=== PATIENT | female | born 1950 | race Caucasian/White ===

== ENCOUNTER 2019-12-22 11:16 | Outpatient (REF) | payer MEDICARE, SELFPAY | END 2019-12-22 11:17 | disposition home or self-care (01) | LOC: HO.LNP 11:16 | PROVIDERS: Visit Provider Hospitalist | DX: R30.0 Dysuria (principal) | CPT/HCPCS: 87086; 87088; 87186 ==

== ENCOUNTER 2020-07-17 14:20 | Outpatient (REF) | payer MEDICARE, SELFPAY ==
--- NOTE | ~2020-07-17 | MM_ITS ---
EXAMINATION: BONE DENSITOMETRY CLINICAL INDICATION: Menopausal. COMPARISON: Previous BD dated 01/25/2018 and baseline BD dated 03/15/2009. TECHNIQUE: Using a [employer] DXA system (software version: 14.10) manufactured by [employer], dual-energy x-ray absorptiometry was performed of the lumbar spine and left hip. The images are of good technical quality. Summary results are attached. FINDINGS: AP SPINE L1-L4: Current: BMD 1.187 g/cm2, Z-score 1.0, T-score 0.1, normal, 2.9% decrease from previous, 2.2% increase from baseline (<5% change is not significant). Prior: BMD 1.223 g/cm2. Baseline: BMD 1.162 g/cm2. LEFT FEMUR, NECK: Current: BMD 0.881 g/cm2, Z-score 0.1, T-score -1.1, osteopenia. Prior: BMD 0.828 g/cm2. Baseline: BMD 0.906 g/cm2. LEFT FEMUR, TOTAL: Current: BMD 0.965 g/cm2, Z-score 0.6, T-score -0.3, normal, 0.9% increase from previous, 1.0% decrease from baseline (<5% change is not significant). Prior: BMD 0.956 g/cm2. Baseline: BMD 0.975 g/cm2. IDENTIFIED RISK FACTORS: Menopause. Anticonvulsant. Low calcium intake. HISTORY OF FRACTURE: Ankle. MEDICATIONS: Vitamin D. MM/XR DEXA axial skeleton IMPRESSION: 1. DIAGNOSIS: Osteopenia based on the lowest T-score value of -1.1 in the femoral neck applying World Health Organization criteria. 2. 10-YEAR FRACTURE RISK PREDICTION, FRAX: Major osteoporotic fracture (clinical spine, forearm, hip or shoulder) 14.0%. Hip fracture 1.4%. 3. Treatment Recommendations: NOF guidelines recommend consideration for treatment in postmenopausal women and men age 50 and older presenting with the following: -A hip or vertebral (clinical or morphometric) fracture. -T-score less than or equal to -2.5 at the femoral neck or spine after appropriate evaluation to exclude secondary causes. -Low bone mass at the hip or spine and a 10-year fracture probability by FRAX of greater than or equal to 3% for hip fracture or greater than or equal to 20% for major osteoporotic fracture based on the [place] adapted WHO algorithm. 4. Other Recommendations: All treatment decisions require clinical judgment and consideration of individual patient factors, including patient preferences, comorbidities, previous drug use, risk factors not captured in the FRAX model (e.g. frailty, falls, vitamin D deficiency, increased bone turnover, interval significant decline in bone density) and possible under or overestimation of fracture risk by FRAX. Additional medical evaluation for secondary cause of low bone mineral density may be appropriate. FUTURE SCAN RECOMMENDATION: People with diagnosed cases of osteoporosis or at high risk for fracture should have regular bone mineral density tests. For patients eligible for Medicare, routine testing is allowed once every 2 years. The testing frequency can be increased to one year for patients who have rapidly progressing disease, those who are receiving or discontinuing medical therapy to restore bone mass, or have additional risk factors.
== END 2020-07-17 14:21 | disposition home or self-care (01) ==
LOC: HO.MAMMO 14:20
PROVIDERS: PCP Internal Medicine; Visit Provider Obstetrics & Gynecology
DX: Z13.820 Encounter for screening for osteoporosis (principal); E28.319 Asymptomatic premature menopause; M85.80 Other specified disorders of bone density and structure, unspecified site; Z78.0 Asymptomatic menopausal state; Z79.899 Other long term (current) drug therapy
CPT/HCPCS: 77080

== ENCOUNTER 2022-02-11 12:12 | Day surgery (SDC) | payer MEDICARE, SELFPAY ==
--- NOTE | 2022-02-10 14:32 | P.CONAN_ITS ---
Documented by User: Ellen Cuellar NP 02/10/22 15:03 HPI - Anesthesia Eval Consult details Narrative: 71yo F for Colonoscopy Afib, s/p ablation, no OAC PMFSH Active Problems Active Problems: All Active Problems (Updated 12/22/19 @ 09:56 by Cooper Cardozo DO) Dysuria (Acute) Past Medical History Medical History ACS (acute coronary syndrome) Arrhythmia CAD (coronary artery disease) Cervical disc disorder Diabetes History of angina History of cancer of uterine body HTN (hypertension) Mixed hyperlipidemia Myocardial infarction ZENON (obstructive sleep apnea) PAF (paroxysmal atrial fibrillation) PVD (peripheral vascular disease) Surgical History Surgical History H/O heart artery stent H/O: hysterectomy History of cardiac radiofrequency ablation (RFA) History of cataract surgery History of dilatation and curettage Hx of colonoscopy Social History Social History Patient Tobacco Use Status: Never used Tobacco Are you DNR?: No Advance Directives: No Advance Directives Information Provided: Yes Nutrition Risks: No Nutritional Risk Meds Allergies Allergy/AdvReac Type Severity Reaction Status Date / Time erythromycin base Allergy Unknown HIVES Verified 02/11/22 13:31 [ERYTHROMYCIN BASE] Penicillins [PENICILLINS] Allergy Unknown HIVES Verified 02/11/22 13:31 Sulfa (Sulfonamide Allergy Unknown unknowmn Verified 02/11/22 13:31 Antibiotics) sulfamethoxazole Allergy Unknown HIVES Verified 02/11/22 13:31 [From BACTRIM] tetracycline [TETRACYCLINE] Allergy Unknown HIVES Verified 02/11/22 13:31 trimethoprim [From BACTRIM] Allergy Unknown HIVES Verified 02/11/22 13:31 MOST ANTIBIOTIS Allergy Unknown HIVES Uncoded 12/22/19 09:46 Home Medications Medication Instructions Recorded Confirmed Last Taken Type atorvastatin 80 mg tablet 80 mg PO DAILY 12/22/19 02/11/22 02/09/22 History diltiazem HCl 120 mg 120 mg PO DAILY 12/22/19 02/11/22 02/10/22 History capsule,extended release 24 hr metoprolol tartrate 50 mg tablet 50 mg PO BID 12/22/19 02/11/2202/11/22 History nitroglycerin 0.4 mg sublingual 1 mg sublingual PRN Chest Pain 12/22/19 12/22/19 Unknown History tablet valsartan 160 mg tablet 160 mg PO DAILY 12/22/19 02/11/22 02/10/22 History aspirin 81 mg tablet,delayed 81 mg PO DAILY 02/11/22 02/11/22 02/04/22 History release metformin 500 mg tablet,extended 1 tab PO DAILY 02/11/22 02/11/22 02/10/22 History release 24 hr nitrofurantoin macrocrystal 100 mg 1 cap PO DAILY 02/11/22 02/11/22 02/10/22 History capsule solifenacin 10 mg tablet 1 tab PO DAILY 02/11/22 02/11/22 02/10/22 History Exam Exam Date and Time: February 10, 2022 1432 Assessment and Plan Assessment Anesthesia Assessment: Chart Reviewed Documented by User: Maggie Ramos MD 02/11/22 14:29 [facility] Active Problems Active Problems: All Active Problems (Updated 12/22/19 @ 09:56 by Cooper Cardozo DO) Dysuria (Acute) ZENON. On CPAP Denies recent chest pain Blood sugar 74. Asymptomatic Past Medical History Medical History ACS (acute coronary syndrome) Arrhythmia CAD (coronary artery disease) Cervical disc disorder Diabetes History of angina History of cancer of uterine body HTN (hypertension) Mixed hyperlipidemia Myocardial infarction ZENON (obstructive sleep apnea) PAF (paroxysmal atrial fibrillation) PVD (peripheral vascular disease) Family History Family history of problems with anesthesia: No Surgical History Surgical History H/O heart artery stent H/O: hysterectomy History of cardiac radiofrequency ablation (RFA) History of cataract surgery History of dilatation and curettage Hx of colonoscopy History of Problems with Anesthesia: No Social History Social History Patient Tobacco Use Status: Never used Tobacco Are you DNR?: No Advance Directives: No Advance Directives Information Provided: Yes Nutrition Risks: No Nutritional Risk Meds Allergies Allergy/AdvReac Type Severity Reaction Status Date / Time erythromycin base Allergy Unknown HIVES Verified 02/11/22 13:31 [ERYTHROMYCIN BASE] Penicillins [PENICILLINS] Allergy Unknown HIVES Verified 02/11/22 13:31 Sulfa (Sulfonamide Allergy Unknown unknowmn Verified 02/11/22 13:31 Antibiotics) sulfamethoxazole Allergy Unknown HIVES Verified 02/11/22 13:31 [From BACTRIM] tetracycline [TETRACYCLINE] Allergy Unknown HIVES Verified 02/11/22 13:31 trimethoprim [From BACTRIM] Allergy Unknown HIVES Verified 02/11/22 13:31 MOST ANTIBIOTIS Allergy Unknown HIVES Uncoded 12/22/19 09:46 Home Medications Medication Instructions Recorded Confirmed Last Taken Type atorvastatin 80 mg tablet 80 mg PO DAILY 12/22/19 02/11/22 02/09/22 History diltiazem HCl 120 mg 120 mg PO DAILY 12/22/19 02/11/22 02/10/22 History capsule,extended release 24 hr metoprolol tartrate 50 mg tablet 50 mg PO BID 12/22/19 02/11/22 02/11/22 History nitroglycerin 0.4 mg sublingual 1 mg sublingual PRN Chest Pain 12/22/19 12/22/19 Unknown History tablet valsartan 160 mg tablet 160 mg PO DAILY 12/22/19 02/11/22 02/10/22 History aspirin 81 mg tablet,delayed 81 mg PO DAILY 02/11/22 02/11/22 02/04/22 History release metformin 500 mg tablet,extended 1 tab PO DAILY 02/11/22 02/11/22 02/10/22 History release 24 hr nitrofurantoin macrocrystal 100 mg 1 cap PO DAILY 02/11/22 02/11/22 02/10/22 History capsule solifenacin 10 mg tablet 1 tab PO DAILY 02/11/22 02/11/22 02/10/22 History Exam Height,Weight and Vital Signs: Height 5 ft 6 in Weight 84.822 kg Vital Signs Temp Pulse Resp BP Pulse Ox O2 Del Method 97 F 61 18 141/82 H 99 BiPAP 02/11/22 12:47 02/11/22 12:47 02/11/22 12:47 02/11/22 12:47 02/11/22 12:47 02/11/22 12:47 Pertinent Lab Results Pertinent Lab Results: Lab Results 02/11/22 Range/Units 12:45 POC Glucose 74 (60-115) mg/dL Airway Mallampati Class: II TM Dist: >3cm Neck ROM: Full Heart: RRR Lungs: CTAB Assessment and Plan Assessment Anesthesia Assessment: Anesthesia Plan Discussed Final Anesthetic Review Family History of Problems with Anesthesia: No History of Problems with Anesthesia: No NPO: Yes ASA Class: III Final Preanesthetic Review: No Changes in Pt Med Stat, Meds/Allgs Chart Reviewed, Consent Obtained/Reviewed and Anes Risks/Benef Reviewed Patient Risk: Intermediate Procedure Risk: Low Assessment/Block/Sedation in SS: Assess/Block/Sedation-SS Anesthetic Plan Anesthetic Plan: MAC: Disposition: Standard PACU
[2022-02-11 09:53] VITALS: BMI 30.2
[2022-02-11 12:47] VITALS: BP 141/82; PULSE 61; RESP 18; TEMP 36.1; O2SAT 99
[2022-02-11 12:49] LABS: Glucose, Whole Blood 74 mg/dL (60-115)
[2022-02-11] MEDS: Sodium Phosphate,Mono-Dibasic 133 ML ENEMA PR (13:20)
[2022-02-11] MEDS: Lactated Ringers 1,000 ML 100 ML IVCONT (13:20)
--- NOTE | 2022-02-11 13:29 | MHC.SHP ---
Pre-Procedural Eval Section A Date of Service: 02/11/22 The patient is an INPATIENT: No Changes since office visit: No Cold of Flu in the past 2 weeks, No New Medical Problems, No Changes in Medication and No Patient answered all questions The History & Physical has been completed within 30 days and I have reviewed it.: Yes Section B Chief Complaint: Hemorrhage of anus and rectum Allergies: Allergies Allergy/AdvReac Type Severity Reaction Status Date / Time azithromycin Allergy Unknown unknown Verified 12/22/19 09:46 erythromycin base Allergy Unknown HIVES Unverified 12/22/19 09:46 [ERYTHROMYCIN BASE] Penicillins [PENICILLINS] Allergy Unknown HIVES Unverified 12/22/19 09:46 Sulfa (Sulfonamide Allergy Unknown unknowmn Verified 12/22/19 09:46 Antibiotics) sulfamethoxazole Allergy Unknown HIVES Unverified 12/22/19 09:46 [From BACTRIM] tetracycline [TETRACYCLINE] Allergy Unknown HIVES Unverified 12/22/19 09:46 trimethoprim [From BACTRIM] Allergy Unknown HIVES Unverified 12/22/19 09:46 MOST ANTIBIOTIS Allergy Unknown HIVES Uncoded 12/22/19 09:46 Plan I have reviewed the history and physical and performed a pertinent physical examination on my patient. No changes have occurred unless specified. Time Spent With Patient Time: Total time managing care of this patient today ____ minutes.
[2022-02-11 14:18] VITALS: BP 139/61; PULSE 62; RESP 16; TEMP 36.1; O2SAT 97
--- NOTE | 2022-02-11 14:24 | P.BOP_ITS ---
Brief Operative Note Date of Service: 02/11/22 Pre-op diagnosis: rectal bleeding Post-op diagnosis: same Procedure: colonoscopy Surgeon: Carroll Aquino Anesthesia: MAC Was an Surplus Property Disposal Agent used for this Procedure?: No Estimated blood loss (mL): 0 Pathology: none sent Condition: stable Disposition: PACU
[2022-02-11 14:33] VITALS: BP 136/50; PULSE 60; RESP 16; O2SAT 98
[2022-02-11 14:48] VITALS: BP 150/59; PULSE 56; RESP 16; O2SAT 98
[2022-02-11 15:05] VITALS: BP 142/47; PULSE 56; RESP 16; O2SAT 98
[2022-02-11 15:41] VITALS: BP 131/49; PULSE 58; RESP 16; TEMP 36.6; O2SAT 98
--- NOTE | 2022-02-11 23:21 | OP_ITS ---
SURGEON: Carroll Aquino MD INDICATIONS: Rectal bleeding. PREOPERATIVE DIAGNOSIS: POSTOPERATIVE DIAGNOSIS: PROCEDURE PERFORMED: Colonoscopy to the cecum. ESTIMATED BLOOD LOSS: COMPLICATIONS: ANESTHESIA: Monitored anesthesia care. ASSISTANTS: SPECIMENS: DESCRIPTION OF PROCEDURE: History and physical performed, the risks and benefits of the procedure were explained to the patient, and informed consent was obtained. The procedure was performed on 02/11. The patient was placed in the left lateral decubitus position. A digital rectal exam was performed and was found to be normal. The Olympus adult colonoscope was introduced into the rectum and advanced to the cecum. The cecum was identified by transillumination, palpation, and identification of ileocecal valve. Examination was performed. The scope was removed. She tolerated the procedure well, returned to recovery in stable condition. FINDINGS: The terminal ileum was not examined. There was a large amount of liquid and formed stool present, which was washed and suctioned as best possible. This extremely limited examination, especially in the left colon, descending colon, sigmoid colon, and rectum. Retroflexed examination showed some internal hemorrhoids. There was moderate sigmoid diverticulosis. The exam was totally inadequate for detection of polyps. IMPRESSION: 1. Rectal bleeding. 2. Limited colonoscopy. RECOMMENDATIONS: Repeat colonoscopy in 3 to 6 months with a 2-day prep. MD NORA Maradiaga/SAM / [id number]
== END 2022-02-11 16:17 | disposition home or self-care (01) ==
PROVIDERS: PCP Internal Medicine; Visit Provider Internal Medicine Gastroenterology
PROC: 0DJD8ZZ Inspection of Lower Intestinal Tract, Via Natural or Artificial Opening Endoscopic (ICD-10-PCS; CPT 45378; principal; 2022-02-11 13:40)
DX: K62.5 Hemorrhage of anus and rectum (principal); K59.00 Constipation, unspecified; K57.30 Diverticulosis of large intestine without perforation or abscess without bleeding; K64.8 Other hemorrhoids; I48.91 Unspecified atrial fibrillation; I10 Essential (primary) hypertension; I25.2 Old myocardial infarction; E11.9 Type 2 diabetes mellitus without complications; I25.10 Atherosclerotic heart disease of native coronary artery without angina pectoris; Z98.61 Coronary angioplasty status; G47.33 Obstructive sleep apnea (adult) (pediatric); Z99.89 Dependence on other enabling machines and devices; Z79.82 Long term (current) use of aspirin; Z79.84 Long term (current) use of oral hypoglycemic drugs; Z79.899 Other long term (current) drug therapy; Z88.0 Allergy status to penicillin; Z88.1 Allergy status to other antibiotic agents; Z88.2 Allergy status to sulfonamides; Z88.8 Allergy status to other drugs, medicaments and biological substances
CPT/HCPCS: 45378; 82947

== ENCOUNTER 2022-05-12 06:26 | Day surgery (SDC) | payer MEDICARE, SELFPAY ==
--- NOTE | 2022-05-11 13:41 | P.CONAN_ITS ---
Documented by User: Ellen Cuellar NP 05/11/22 13:42 HPI - Anesthesia Eval Consult details Narrative: 72yo F for Colonoscopy s/p colo 01/2022 with MAC (poor prep) Afib, s/p ablation, no OAC PMFSH Active Problems Active Problems: All Active Problems (Updated 02/11/22 @ 13:29 by Shruti Aldrich RN) Dysuria (Acute) Past Medical History Medical History ACS (acute coronary syndrome) Arrhythmia CAD (coronary artery disease) Cervical disc disorder Diabetes History of angina History of cancer of uterine body HTN (hypertension) Mixed hyperlipidemia Myocardial infarction ZENON (obstructive sleep apnea) PAF (paroxysmal atrial fibrillation) PVD (peripheral vascular disease) Family History Family history of problems with anesthesia: No Surgical History Surgical History H/O heart artery stent H/O: hysterectomy History of cardiac radiofrequency ablation (RFA) History of cataract surgery History of dilatation and curettage Hx of colonoscopy History of Problems with Anesthesia: No Social History Social History Patient Tobacco Use Status: Never used Tobacco Use of substances other than those prescribed or required for medical reasons: No Are you DNR?: No Advance Directives: No Advance Directives Information Provided: Yes Meds Allergies Allergy/AdvReac Type Severity Reaction Status Date / Time erythromycin base Allergy Unknown HIVES Verified 02/11/22 13:31 [ERYTHROMYCIN BASE] Penicillins [PENICILLINS] Allergy Unknown HIVES Verified 02/11/22 13:31 Sulfa (Sulfonamide Allergy Unknown unknowmn Verified 02/11/22 13:31 Antibiotics) sulfamethoxazole Allergy Unknown HIVES Verified 02/11/22 13:31 [From BACTRIM] tetracycline [TETRACYCLINE] Allergy Unknown HIVES Verified 02/11/22 13:31 trimethoprim [From BACTRIM] Allergy Unknown HIVES Verified 02/11/22 13:31 MOST ANTIBIOTIS Allergy Unknown HIVES Uncoded 12/22/19 09:46 Home Medications Medication Instructions Recorded Confirmed Last Taken Type atorvastatin 80 mg tablet 80 mg PO DAILY 12/22/19 02/11/22 02/09/22 History diltiazem HCl 120 mg 120 mg PO DAILY 12/22/19 02/11/22 02/10/22 History capsule,extended release 24 hr metoprolol tartrate 50 mg tablet 50 mg PO BID 12/22/19 02/11/22 02/11/22 History nitroglycerin 0.4 mg sublingual 1 mg sublingual PRN Chest Pain 12/22/19 12/22/19 Unknown History tablet valsartan 160 mg tablet 160 mg PO DAILY 12/22/19 02/11/22 02/10/22 History aspirin 81 mg tablet,delayed 81 mg PO DAILY 02/11/22 02/11/22 02/04/22 History release metformin 500 mg tablet,extended 1 tab PO DAILY 02/11/22 02/11/22 02/10/22 History release 24 hr nitrofurantoin macrocrystal 100 mg 1 cap PO DAILY 02/11/22 02/11/22 02/10/22 History capsule solifenacin 10 mg tablet 1 tab PO DAILY 02/11/22 02/11/22 02/10/22 History Exam Exam Date and Time: May 11, 2022 134 Assessment and Plan Assessment Anesthesia Assessment: Chart Reviewed Final Anesthetic Review Family History of Problems with Anesthesia: No History of Problems with Anesthesia: No Documented by User: London Rosas MD 05/12/22 07:42 [facility] Past Medical History Medical History ACS (acute coronary syndrome) Arrhythmia CAD (coronary artery disease) Cervical disc disorder Diabetes History of angina History of cancer of uterine body HTN (hypertension) Mixed hyperlipidemia Myocardial infarction ZENON (obstructive sleep apnea) PAF (paroxysmal atrial fibrillation) PVD (peripheral vascular disease) Narrative: No CP or SOB Surgical History Surgical History H/O heart artery stent H/O: hysterectomy History of cardiac radiofrequency ablation (RFA) History of cataract surgery History of dilatation and curettage Hx of colonoscopy Social History Social History Patient Tobacco Use Status: Never used Tobacco Use of substances other than those prescribed or required for medical reasons: No Are you DNR?: No Advance Directives: No Advance Directives Information Provided: Yes Meds Allergies Allergy/AdvReac Type Severity Reaction Status Date / Time erythromycin base Allergy Unknown HIVES Verified 02/11/22 13:31 [ERYTHROMYCIN BASE] Penicillins [PENICILLINS] Allergy Unknown HIVES Verified 02/11/22 13:31 Sulfa (Sulfonamide Allergy Unknown unknowmn Verified 02/11/22 13:31 Antibiotics) sulfamethoxazole Allergy Unknown HIVES Verified 02/11/22 13:31 [From BACTRIM] tetracycline [TETRACYCLINE] Allergy Unknown HIVES Verified 02/11/22 13:31 trimethoprim [From BACTRIM] Allergy Unknown HIVES Verified 02/11/22 13:31 MOST ANTIBIOTIS Allergy Unknown HIVES Uncoded 12/22/19 09:46 Home Medications Medication Instructions Recorded Confirmed Last Taken Type atorvastatin 80 mg tablet 80 mg PO DAILY 12/22/19 02/11/22 02/09/22 History diltiazem HCl 120 mg 120 mg PO DAILY 12/22/19 02/11/22 02/10/22 History capsule,extended release 24 hr metoprolol tartrate 50 mg tablet 50 mg PO BID 12/22/19 02/11/22 02/11/22 History nitroglycerin 0.4 mg sublingual 1 mg sublingual PRN Chest Pain 12/22/19 12/22/19 Unknown History tablet valsartan 160 mg tablet 160 mg PO DAILY 12/22/19 02/11/22 02/10/22 History aspirin 81 mg tablet,delayed 81 mg PO DAILY 02/11/22 02/11/22 02/04/22 History release metformin 500 mg tablet,extended 1 tab PO DAILY 02/11/22 02/11/22 02/10/22 History release 24 hr nitrofurantoin macrocrystal 100 mg 1 cap PO DAILY 02/11/22 02/11/22 02/10/22 History capsule solifenacin 10 mg tablet 1 tab PO DAILY 02/11/22 02/11/22 02/10/22 History Exam Airway Mallampati Class: III TM Dist: >3cm Neck ROM: Full Heart: ok Lungs: ok Assessment and Plan Assessment Anesthesia Assessment: Anesthesia Plan Discussed Final Anesthetic Review NPO: Yes ASA Class: IV Final Preanesthetic Review: No Changes in Pt Med Stat, Meds/Allgs Chart Reviewed, Consent Obtained/Reviewed and Anes Risks/Benef Reviewed Patient Risk: High Procedure Risk: Low Anesthetic Plan Anesthetic Plan: MAC: and Agree w/ Assess. and Plan Disposition: Standard PACU
[2022-05-12 06:49] VITALS: BMI 23.8
[2022-05-12] MEDS: Lactated Ringers 1,000 ML 100 ML IVCONT (07:00)
[2022-05-12 07:01] LABS: Glucose, Whole Blood 71 mg/dL (60-115)
[2022-05-12 07:05] VITALS: BP 98/58; PULSE 61; RESP 18; TEMP 36.1; O2SAT 98
[2022-05-12 08:38] VITALS: BP 113/53; PULSE 56; RESP 16; TEMP 36.2; O2SAT 98
[2022-05-12] MEDS: Sodium Phosphate,Mono-Dibasic 133 ML ENEMA PR (08:38)
[2022-05-12 08:49] LABS: Glucose, Whole Blood 194 mg/dL (60-115)
[2022-05-12 08:53] VITALS: BP 139/55; PULSE 54; RESP 16; TEMP 36.1; O2SAT 100
--- NOTE | 2022-05-12 08:55 | OP_ITS ---
SURGEON: Carroll Aquino MD INDICATIONS: Colon cancer screening and rectal bleeding. PREOPERATIVE DIAGNOSIS: POSTOPERATIVE DIAGNOSIS: PROCEDURE PERFORMED: Colonoscopy to the cecum. ESTIMATED BLOOD LOSS: COMPLICATIONS: ANESTHESIA: Monitored anesthesia care. ASSISTANTS: SPECIMENS: DESCRIPTION OF PROCEDURE: Date:05/12/22. A history and physical was performed. The risks and benefits of the procedure were explained to the patient. Informed consent was obtained. The patient was placed in the left lateral decubitus position. A digital rectal exam was performed and was found to be normal. The Olympus pediatric video colonoscope was introduced into the rectum and advanced to the cecum without difficulty. The cecum was identified by transillumination, palpation, and identification of the ileocecal valve. Examination was performed and the scope was removed. She tolerated the procedure well and was returned to the recovery area in stable condition. FINDINGS: The terminal ileum was not examined. The visualized colonic mucosa was normal. There was a large amount of liquid stool, which limits sensitivity examination for detection of small polyps. This was present mainly in the transverse colon, descending colon and sigmoid. No polyps were identified. The liquid was washed and suctioned as best possible. Retroflexed examination was normal. IMPRESSION: Normal colonoscopy. RECOMMENDATIONS: 1. Follow up as needed. 2. Repeat colonoscopy is recommended in 10 years for average risk individuals. MD NORA Maradiaga/SAM / [id number] MTDD
== END 2022-05-12 09:29 | disposition home or self-care (01) ==
PROVIDERS: PCP Internal Medicine; Visit Provider Internal Medicine Gastroenterology
PROC: 0DJD8ZZ Inspection of Lower Intestinal Tract, Via Natural or Artificial Opening Endoscopic (ICD-10-PCS; CPT 45378; principal; 2022-05-12 07:30)
DX: K62.5 Hemorrhage of anus and rectum (principal); K59.00 Constipation, unspecified; Z87.19 Personal history of other diseases of the digestive system; G47.33 Obstructive sleep apnea (adult) (pediatric); I25.2 Old myocardial infarction; I48.91 Unspecified atrial fibrillation; I10 Essential (primary) hypertension; E11.9 Type 2 diabetes mellitus without complications; Z79.84 Long term (current) use of oral hypoglycemic drugs; Z99.89 Dependence on other enabling machines and devices; Z79.82 Long term (current) use of aspirin; Z79.899 Other long term (current) drug therapy; Z85.42 Personal history of malignant neoplasm of other parts of uterus; Z88.0 Allergy status to penicillin; Z88.1 Allergy status to other antibiotic agents; Z88.2 Allergy status to sulfonamides
CPT/HCPCS: 45378; 82947

== ENCOUNTER 2022-11-18 08:38 | Outpatient (AMB) | payer MEDICARE, SELFPAY ==
--- NOTE | 2022-11-18 08:50 | AM.OFFWIN_ITS ---
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 Intake Note: Pt is here c/o right ankle/leg pain. Pt fell in her dinning room yesterday. Patient Tobacco Use Status: Never used Tobacco Allergies erythromycin base [ERYTHROMYCIN BASE] Allergy (Unknown, Verified 02/11/22 13:31) HIVES Penicillins [PENICILLINS] Allergy (Unknown, Verified 02/11/22 13:31) HIVES Sulfa (Sulfonamide Antibiotics) Allergy (Unknown, Verified 02/11/22 13:31) unknowmn sulfamethoxazole [From BACTRIM] Allergy (Unknown, Verified 02/11/22 13:31) HIVES tetracycline [TETRACYCLINE] Allergy (Unknown, Verified 02/11/22 13:31) HIVES trimethoprim [From BACTRIM] Allergy (Unknown, Verified 02/11/22 13:31) HIVES MOST ANTIBIOTIS Allergy (Unknown, Uncoded 12/22/19 09:46) HIVES Do you need a note to return to daycare/school/sports/work: No HPI HPI Comments History of Present Illness Details The patient presents to urgent care for evaluation of right foot and ankle pain. She states that she stepped wrong last night and twisted her foot. She now complains of pain and swelling to the base of the ankle and foot. [facility] Medical History (Updated 11/18/22 @ 08:56 by Ashley Clayton DO) Foot injury Cervical disc disorder History of cancer of uterine body Diabetes History of angina Arrhythmia PVD (peripheral vascular disease) Myocardial infarction ACS (acute coronary syndrome) CAD (coronary artery disease) ZENON (obstructive sleep apnea) Mixed hyperlipidemia HTN (hypertension) PAF (paroxysmal atrial fibrillation) Surgical History History of dilatation and curettage History of cataract surgery H/O heart artery stent History of cardiac radiofrequency ablation (RFA) Hx of colonoscopy H/O: hysterectomy Social History Patient Tobacco Use Status: Never used Tobacco Review of Systems Const Denies frequent falls Eyes Reports no additional complaints GI Denies vomiting Denies flank pain Musc Denies muscle weakness, Denies radiating pain into limb, Denies stiffness and Denies tingling Skin/Breast Denies rash and Denies sores Neuro Denies frequent falls and Denies tingling Psych Reports no additional complaints Physical Exam Vital Signs: Last Vital Signs Temp 96.4 F L 11/18/22 08:57 Pulse 69 11/18/22 08:57 BP 122/60 11/18/22 08:57 Pulse Ox 99 11/18/22 08:57 Oxygen Delivery Method Room Air 11/18/22 08:57 BMI result Body Mass Index 24.4 Const General: healthy appearing, comfortable and no acute distress Limitations: crutches Eyes General: appearance normal, both eyes and all related structures Extrem Other: Ankle: Mild soft tissue swelling noted about the lateral malleolus. No obvious bony deformity. Tender palpation at the base of the 5th metatarsal. No ecchymosis General: Yes other (Inferior to the lateral malleolus: ecchymosis and mild soft tissue swelling) Assessment & Plan Assessment & Plan (1) Foot injury: Code(s): S99.929A - Unspecified injury of unspecified foot, initial encounter Plan X-rays interpreted by me no fracture no dislocation. Final report per Radiology pending. Francesco wrap given. Patient is ambulatory recommend ibuprofen Tylenol and over elevation. Orders: Orders XR ankle RT min 3V Today S99.919A - Unspecified injury of unspecified ankle, initial encounter XR foot RT min 3V Today S99.929A - Unspecified injury of unspecified foot, initial encounter Coding Level of Care Code Est Pt Level 3 (04541) Diagnoses Foot injury S99.929A
[2022-11-18 08:57] VITALS: BP 122/60; PULSE 69; TEMP 35.8; O2SAT 99; BMI 24.4
== END 2022-11-18 09:42 | disposition home or self-care (01) ==
PROVIDERS: PCP Internal Medicine; Visit Provider Emergency Medicine
DX: S99.929A Unspecified injury of unspecified foot, initial encounter (principal)
CPT/HCPCS: 99213

== ENCOUNTER 2022-11-18 09:01 | Outpatient (REF) | payer MEDICARE, SELFPAY ==
--- NOTE | ~2022-11-18 | XR_ITS ---
EXAMINATION: RIGHT ANKLE, RIGHT FOOT CLINICAL INFORMATION: Unspecified injury of ankle and foot COMPARISON: Right foot 02/11/2009 TECHNIQUE: 3 views right ankle, 3 views right foot FINDINGS: Some soft tissue swelling is present medially. No ankle fracture is seen. The ankle mortise appears stable. Some mild degenerative changes are seen at the tip of the medial malleolus. There is mild hallux valgus. Some mild degenerative changes are seen at the first MTP joint Compared to 2008. Some minimal degenerative changes are seen at the DIP joints. A plantar calcaneal spur is present along with a spur at the insertion of the Achilles tendon. No foot fracture or dislocation seen. XR/XR foot RT min 3V IMPRESSION: 1. No evidence of an acute traumatic osseous injury. 2. Mild degenerative changes as described above.
--- NOTE | ~2022-11-18 | XR_ITS ---
EXAMINATION: RIGHT ANKLE, RIGHT FOOT CLINICAL INFORMATION: Unspecified injury of ankle and foot COMPARISON: Right foot 02/11/2009 TECHNIQUE: 3 views right ankle, 3 views right foot FINDINGS: Some soft tissue swelling is present medially. No ankle fracture is seen. The ankle mortise appears stable. Some mild degenerative changes are seen at the tip of the medial malleolus. There is mild hallux valgus. Some mild degenerative changes are seen at the first MTP joint Compared to 2008. Some minimal degenerative changes are seen at the DIP joints. A plantar calcaneal spur is present along with a spur at the insertion of the Achilles tendon. No foot fracture or dislocation seen. XR/XR ankle RT min 3V IMPRESSION: 1. No evidence of an acute traumatic osseous injury. 2. Mild degenerative changes as described above.
== END 2022-11-18 09:02 | disposition home or self-care (01) ==
LOC: HO.HMGCX 09:01
PROVIDERS: PCP Internal Medicine; Visit Provider Emergency Medicine
DX: S99.911A Unspecified injury of right ankle, initial encounter (principal); S99.921A Unspecified injury of right foot, initial encounter; X58.XXXA Exposure to other specified factors, initial encounter; Y93.9 Activity, unspecified; Y92.9 Unspecified place or not applicable; Y99.9 Unspecified external cause status
CPT/HCPCS: 73610; 73630

== ENCOUNTER 2023-12-10 07:55 | Outpatient (REF) | payer MEDICARE, SELFPAY ==
--- NOTE | ~2023-12-10 | MM_ITS ---
EXAMINATION: BONE DENSITOMETRY CLINICAL INDICATION: Asymptomatic menopausal state. COMPARISON: Previous BD dated 07/17/2020 and baseline BD dated 03/15/2009. TECHNIQUE: Using a [employer] DXA System (software version: 13.1) manufactured by [employer], dual-energy x-ray absorptiometry was performed of the lumbar spine and left hip. The images are of good technical quality. Summary results are attached. FINDINGS: LEFT FEMUR, NECK: Current: BMD 0.817 g/cm2, Z-score -0.2, T-score -1.6, osteopenia. Prior: BMD 0.881 g/cm2. Baseline: BMD 0.906 g/cm2. LEFT FEMUR, TOTAL: Current: BMD 0.908 g/cm2, Z-score 0.3, T-score -0.8, normal, 5.9% decrease from previous, 6.9% decrease from baseline (<5% change is not significant). Prior: BMD 0.965 g/cm2. Baseline: BMD 0.975 g/cm2. AP SPINE L1-L4: Current: BMD 1.116 g/cm2, Z-score 0.5, T-score -0.5, normal, 6.0% decrease from previous, 4.0% decrease from baseline (<5% change is not significant). Prior: BMD 1.187 g/cm2. Baseline: BMD 1.162 g/cm2. IDENTIFIED RISK FACTORS: Low calcium intake, history of fracture (adult), menopause, hysterectomy, bilateral oophorectomy, anticonvulsant. HISTORY OF FRACTURE: Other. MEDICATIONS: Vitamin D. MM/XR DEXA axial skeleton IMPRESSION: 1. DIAGNOSIS: Osteopenia based on the lowest T-score value of -1.6 in the femoral neck applying World Health Organization criteria. 2. 10-YEAR FRACTURE RISK PREDICTION, FRAX: Major osteoporotic fracture (clinical spine, forearm, hip or shoulder) 16.6%. Hip fracture 2.8%. 3. Treatment Recommendations: NOF guidelines recommend consideration for treatment in postmenopausal women and men age 50 and older presenting with the following: -A hip or vertebral (clinical or morphometric) fracture. -T-score less than or equal to -2.5 at the femoral neck or spine after appropriate evaluation to exclude secondary causes. -Low bone mass at the hip or spine and a 10-year fracture probability by FRAX of greater than or equal to 3% for hip fracture or greater than or equal to 20% for major osteoporotic fracture based on the [place] adapted WHO algorithm. 4. Other Recommendations: All treatment decisions require clinical judgment and consideration of individual patient factors, including patient preferences, comorbidities, previous drug use, risk factors not captured in the FRAX model (e.g. frailty, falls, vitamin D deficiency, increased bone turnover, interval significant decline in bone density) and possible under or overestimation of fracture risk by FRAX. Additional medical evaluation for secondary cause of low bone mineral density may be appropriate. FUTURE SCAN RECOMMENDATION: People with diagnosed cases of osteoporosis or at high risk for fracture should have regular bone mineral density tests. For patients eligible for Medicare, routine testing is allowed once every 2 years. The testing frequency can be increased to one year for patients who have rapidly progressing disease, those who are receiving or discontinuing medical therapy to restore bone mass, or have additional risk factors. Electronically signed by: Nica Perales MD 12/10/2023 10:56 AM EDT
== END 2023-12-10 07:56 | disposition home or self-care (01) ==
LOC: HO.MAMMO 07:55
PROVIDERS: PCP Internal Medicine; Visit Provider Internal Medicine
DX: Z78.0 Asymptomatic menopausal state (principal)
CPT/HCPCS: 77080

== ENCOUNTER 2024-04-04 06:50 | Day surgery (SDC) | payer MEDICARE, SELFPAY ==
--- OUTSIDE RECORDS SUMMARY | 2024-02-14 06:46 | XMS_ITS ---
Author Organization [facility] Address [address] [place] [address] Care Team Providers Care Refueler Name Role Phone Michael Orellana MD Primary Care Provider Carroll Salazar Jr Unavailable ALLERGIES Allergen (clinical drug ingredient) Drug/Non Drug Allergy documented on EMR Reaction Allergy Type Onset Date Status tetracycline Tetracycline HCl Unknown Drug Allergy Active penicillin G Penicillin G Sodium Unknown Drug Allergy Active erythromycin Erythromycin Unknown Drug Allergy A ctive sulfamethoxazole / trimethoprim Bactrim Unknown Drug Allergy Active most antibiotics (uncoded) Unknown Allergy Active Adhesive Unknown Allergy Active REASON FOR VISIT patient presents today for RECTAL BLEEDING, CONSTIPATION MEDICATIONS Medication SIG (Take, Route, Frequency, Duration) Notes Start Date End Date Status hydroCHLOROthiazide 12.5 MG Oral for 90 Active Gabapentin 100 MG Oral for 30 Active Myrbetriq 50 MG TAKE 1 TABLET ONCE DAILY ATTHE SAME TIME DAILY Oral for 90 [id number],MIXED INCONTINENCE Active Nitrofurantoin Macrocrystal 100 MG TAKE ONE CAPSULE BY MOUTH EVERY DAY Oral for 85 Active Vitamin D 2000 UNIT 1 tablet Orally Once a day for 30 day(s) Active Aspirin 81 81 MG 1 tablet Orally Once a day for 30 day(s) Active Diltiazem CD 120 MG 1 capsule Orally Once a day for 30 day(s) Active Metoprolol Succinate 50 MG as directed Orally 50 mg with 25 mg twice a day Active Atorvastatin Calcium 80 MG 1 tablet Orally Once a day Active Valsartan-hydroCHLOROthia zide 320-12.5 MG 1 tablet Orally Once a day for 30 day(s) Active Magnesium 200 MG 2 tablets with a meal Orally Once a day for 30 day(s) Active SOCIAL HISTORY Tobacco Use: Social History Observation Description Date Details (start date - stop date) Never Smoker NA - NA Sex Assigned At : Social History Observation Description Sex Assigned At Unknown Tobacco Use/Smoking Question Answer Notes Patient is a nonsmoker Alcohol Screen Question Answer Notes Did you have a drink containing alcohol in the p ast year? No Points 0 Interpretation Negative PROBLEMS Problem Type ICD Code Onset Dates Problem Status W/U Status Risk SNOMED Code Notes Problem Abnormal CT scan, stomach (R93.3) Active confirmed [id number] VITAL SIGNS BMI 29.37 kg/m2 02/10/2024 Blood pressure systolic 00 mm Hg 02/10/20 24 Blood pressure diastolic 00 mm Hg 024 Height 66 in 02/10/2024 Weight 182 lbs 02/10/2024 Encounters Encounter Location Date Provider Diagnosis [facility] [address] [facility] [address] [place] [id number] 02/10/2024 Carroll Aquino Jr Abnormal CT scan, stomach R93.3 ASSESSMENTS Encounter Date Diagnosis Assessment Notes Treatment Notes Treatment Clinical Notes 02/10/[address] scan, stomach (ICD-10 - R93.3) PLAN OF TREATMENT Future Test Test Name Order Date UPPER GI ENDOSCOPY 02/10/2024 Next Appt Details Provider Name:Carroll melendrez Jr, 04/04/2024 08:10:00 AM, [address] [place] [address] , [place], [place], [id number],
--- OUTSIDE RECORDS SUMMARY | 2024-02-14 06:46 | XMS_ITS ---
Author Organization [facility] Address [address] [place] [address] Care Team Providers Care Regeneration Operator Name Role Phone Michael Orellana MD Primary Care Provider Unavaila ble Black, Jennifer Unavailable [phone] Allergies Allergen (clinical drug ingredient) Drug/Non Drug Allergy documented on EMR Reaction Allergy Type Onset Date Status amoxicillin Amoxicillin rash Drug Allergy Act sera sulfamethoxazole / trimethoprim Bactrim Unknown Drug Allergy Active Biaxin rash Drug Allergy Active erythromycin Erythromycin rash Drug Allergy A ctive Adhesive Unknown Allergy Active Penicillin rash Drug Allergy Active Substance with sulfonamide structure and antibacterial mechanism of action (substance) Sulfa Antibiotics Unknown Drug Allergy Active Broccoli Broccoli intolerance Allergy Active REASON FOR VISIT Painful nail(s) aggrevated by shoes causing difficulty standing/walking, At Risk Footcare, Foot pain Medications Medication SIG (Take, Route, Frequency, Duration) Notes Start Date End Date Status Isosorbide Mononitrate ER 30 MG 1 tablet Orally Once a day Not-Taking amLODIPine Besylate 5 MG 1 tablet Orally Once a day Not-Taking Ciclopirox Olamine 0.77% external Apply to effected areas twice a day for 30 days 11/14/2014 Not-Taking Triamterene-HCTZ 37.5-25 MG 1 tablet in the morning Orally Once a day Not-Taking LamISIL 250 MG 1 tablet Orally Once a day for 7 days then stop for 3 weeks then repeat cycle for 12 months for 360 days finished 07/201710/05/2016 Not-Taking Night Splint AFO - L1930 as directed 05/28/2016 Not-Taking Cipro 500 MG 1 tablet Orally every 12 hrs for 10 day(s) 01/24/2018 Not-Taking Triamterene Not-Taki ng oxyBUTYnin Not-Takin g Doxycycline Hyclate 100 MG 1 tablet Orally Once a day for 10 day(s) 03/07/2020 Not-Taking Clopidogrel Bisulfate 75 MG Orally Not-Taking zzzCompression Stockings 20-30mm Hg . . . for . Not-Taking metFORMIN HCl 500 MG 1 tablet with a meal Orally Once a day for 30 day(s) Not-Taking Aspirin Adult Low Strength 81 MG 1 tablet Orally Once a day Not-Taking Hydrocortisone 1 % 1 application to affected area Externally Twice a day to affected areas on feet for 30 days Not-Taking Vitamin D Active Solifenacin Succinate 5 MG 1 tablet Orally Once a day for 30 day(s) Not-Taking Metoprolol Tartrate 50 MG 1 tablet Orall y Twice a day Active dilTIAZem HCl Active Losartan Potassium-HCTZ 50-12.5 MG 1 tablet Orally Once a day Active Baby Aspirin Active Atorvastatin Calcium 80 MG 1 tablet Orally Once a day Active Gabapentin Active Magnesium 200mg once a day Active Myrbetriq 25 MG as directed Orally Active hydroCHLOROthiazide 25 MG 1 tablet in th e morning Orally Once a day Active Social History Tobacco Use: Social History Observation Description Date Details (start date - stop date) Never Smoker NA - NA Tobacco Use/Smoking Question Answer Notes Are you a: nonsmoker Additional Findings: Tobacco Non-User Current no n-smoker Alcohol Screen Question Answer Notes Did you have a drink containing alcohol in the p ast year? No Points 0 Interpretation Negative Tobacco use other than smoking: Question Answer Notes Are you an other tobacco user? No Problems Problem Type SNOMED Code ICD Code Onset Dates Problem Status W/U Status Risk Notes Problem Acquired hallux valgus (32319284) Hallux valgus (acquired), left foot (M20.12) Active confirmed Problem Acquired hallux valgus (22164802) Hallux valgus (acquired), right foot (M20.11) Active confirmed Vital Signs Height 5ft 6in in 09/09/2023 Weight 160 lbs 09/09/2023 BMI 25.82 kg/m2 09/09/2023 Procedures Procedure Date Ordered Date Performed Result Body Sit e 19491-YAHISXX NAIL, 6 OR MORE 09/09/2023 N/A Encounters Encounter Location Date Provider Diagnosis [facility] [address] [place] [address] 09/09/2023 Jennifer Black Tinea unguium B35.1 ; Hallux valgus (acquired), right foot M20.11 ; Pain in right toe(s) M79.674 ; Pain in left toe(s) M79.675 ; Type 2 diabetes mellitus without complications E11.9 ; Pain in left foot M79.672 ; Pain in left ankle and joints of left foot M25.572 ; Bursitis of left foot M77.52 ; Hallux valgus (acquired), left foot M20.12 ; Pain in right foot M79.671 ; Pain in right ankle and joints of right foot M25.571 and Bursitis of right foot M77.51 Assessments Encounter Date Diagnosis (ICD Code) Assessment Notes Treatment Notes Treatment Clinical Notes Section Notes 09/09/2023 Tinea unguium (ICD-10 - B35.1) 09/09/2023 Hallux valgus (acquired), right foot (ICD-10 - M20.11) 09/09/2023 Pain in right toe(s) (ICD-10 - M79.674) 09/09/2023 Pain in left toe(s) (ICD-10 - M79.675) 09/09/2023 Type 2 diabetes mellitus without complications (ICD-10 - E11.9) 09/09/2023 Pain in left foot (ICD-10 - M79.672) 09/09/2023 Pain in left ankle and joints of left foot (ICD-10 - M25.572) 09/09/2023 Bursitis of left foot (ICD-10 - M77.52) 09/09/2023 Hallux valgus (acquired), left foot (ICD-10 - M20.12) 09/09/2023 Pain in right foot (ICD-10 - M79.671) 09/09/2023 Pain in right ankle and joints of right foot (ICD-10 - M25.571) 09/09/2023 Bursitis of right foot (ICD-10 - M77.51) Plan Of Treatment Pending Test Test Name Order Date 16729-[id number] NAIL, 6 OR MORE 09/09/2023 Next Appt Details Follow Up: prn, Reason: Provider Name:Jennifer Agarwal , 03/16/2024 08:15:00 AM, [address] [place] [address], [phone], Provider Name:Jennifer Agarwal , 05/25/2024 08:15:00 AM, [address] [place] [address], [phone], Procedure Notes * Category Sub-Category Detail Notes Debride Nail 6-10 Nail debridement Nail debridem ent performed extensively to reduce/remove overall nail length and girth, subungual debris, and necrotic tissue, by manual and electrical means with use of a nail nipper and/or dremel, to more viable healthy nail plate or bed tissue 6-10. Silver nitrate used for any petechial bleeding as necessary. Patient chooses, no pharmaceutical tx (99010) Progress Notes * Starla OLIVADOB: (73 yo F)Acc No.[id number]:09/09/2023 Progress Note Patient:?Liang Oliva Provider:?Jennifer Agarwal DPM :1950???Age:73 Y???Sex:Female D ate:09/09/2023 Address:[address] [place] [address] [facility] [place] [phone] Pcp:Michael Orellana MD Subjective: * Chief Complaints: * ???Painful nail(s) aggrevate d by shoes causing difficulty standing/walkingAt Risk FootcareFoot pain * HPI: ???Painful Nails:?Pt States Last PCP Visit:?Date:?07/29/2023 ???Foot Pain:?Location:?Inside, Great toe joint, B/L.?Duration:?1 month.?Course:?worse.?Aggrevated:?any pressure.?Treatments:?rest/alter normal daily activity.? * Medical History:? * Surgical History:?heart surg [place] unspecified 04/2013stent insertion blation 04/2013Lupereapeater Placement - Cardiac procedure 2018Uterus Bx 04/2018right artery stent 01/31/2019hysterectomy- Cancer cells 04/11/21D and C 03/15 * Hospitalization/Major Diagno stic Procedure:?Visit to online media buyer for lupur placement - measure heart beats 06/2017[facility] Emmett- [facility] concussion Chauhan Adan- Diverticulosis * Family History:?Mother: dece ased, diagnosed with Unspecified cerebral artery occlusion with cerebral infarction.?Father: , diagnosed with Other malignant neoplasm of unspecified site.? * Social History:?Tobacco Use:?Tobacco Use/Smoking?Are you a:?nonsmoker ?Additional Findings: Tobacco Non-User?Current non-smoker ?Tobacco use other than smoking?Are you an other tobacco user??No ???Drugs/Alcohol:?Drugs?Have you used drugs other than those for medical reasons in the past 12 months??No ?Alcohol Screen?Did you have a drink containing alcohol in the past year??No ?Points?0 ?Interpretation?Negative ???Miscellaneous:?Caffeine: yes, 1-2 cups per day. ?Children: yes, 2. ?Exercise: yes, walking, occasional. ?Marital status: . 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 * Medications:?TakinghydroCHLO ROthiazide 25 MG Tablet 1 tablet in the morning Orally Once a dayMyrbetriq 25 MG Tablet Extended Release 24 Hour as directed Orally Gabapentin Magnesium , Notes: 200mg once a dayBaby Aspirin Atorvastatin Calcium 80 MG Tablet 1 tablet Orally Once a dayLosartan Potassium-HCTZ 50-12.5 MG Tablet 1 tablet Orally Once a dayMetoprolol Tartrate 50 MG Tablet 1 tablet Orally Twice a daydilTIAZem HCl Vitamin D Taking hydroCHLOROthiazide 25 MG Tablet 1 tablet in the morning Orally Once a dayTaking Myrbetriq 25 MG Tablet Extended Release 24 Hour as directed Orally Taking Gabapentin Taking Magnesium , Notes: 200mg once a dayTaking Baby Aspirin Taking Atorvastatin Calcium 80 MG Tablet 1 tablet Orally Once a dayTaking Losartan Potassium-HCTZ 50-12.5 MG Tablet 1 tablet Orally Once a dayTaking Metoprolol Tartrate 50 MG Tablet 1 tablet Orally Twice a dayTaking dilTIAZem HCl Taking Vitamin D Not-Taking/PRNSolifenacin Succinate 5 MG Tablet 1 tablet Orally Once a dayAspirin Adult Low Strength 81 MG Tablet Delayed Release 1 tablet Orally Once a dayHydrocortisone 1 % Cream 1 application to affected area Externally Twice a day to affected areas on feetzzzCompression Stockings 20-30mm Hg 1 pair closed toe- knee high . . .metFORMIN HCl 500 MG Tablet 1 tablet with a meal Orally Once a dayClopidogrel Bisulfate 75 MG Tablet Orally oxyBUTYnin Doxycycline Hyclate 100 MG Tablet 1 tablet Orally Once a dayCipro 500 MG Tablet 1 tablet Orally every 12 hrsTriamterene Night Splint AFO - L1930 as directed LamISIL 250 MG Tablet 1 tablet Orally Once a day for 7 days then stop for 3 weeks then repeat cycle for 12 months, Notes: finished 07/2017Ciclopirox Olamine 0.77% Cream external Apply to effected areas twice a dayTriamterene-HCTZ 37.5-25 MG Tablet 1 tablet in the morning Orally Once a dayIsosorbide Mononitrate ER 30 MG Tablet Extended Release 24 Hour 1 tablet Orally Once a dayamLODIPine Besylate 5 MG Tablet 1 tablet Orally Once a dayMedication List reviewed and reconciled with the patientNot-Taking/PRN Solifenacin Succinate 5 MG Tablet 1 tablet Orally Once a dayNot-Taking/PRN Aspirin Adult Low Strength 81 MG Tablet Delayed Release 1 tablet Orally Once a dayNot-Taking/PRN Hydrocortisone 1 % Cream 1 application to affected area Externally Twice a day to affected areas on feetNot-Taking/PRN zzzCompression Stockings 20-30mm Hg 1 pair closed toe- knee high . . .Not-Taking/PRN metFORMIN HCl 500 MG Tablet 1 tablet with a meal Orally Once a dayNot-Taking/PRN Clopidogrel Bisulfate 75 MG Tablet Orally Not-Taking/PRN oxyBUTYnin Not-Taking/PRN Doxycycline Hyclate 100 MG Tablet 1 tablet Orally Once a dayNot-Taking/PRN Cipro 500 MG Tablet 1 tablet Orally every 12 hrsNot-Taking/PRN Triamterene Not-Taking/PRN Night Splint AFO - L1930 as directed Not-Taking/PRN LamISIL 250 MG Tablet 1 tablet Orally Once a day for 7 days then stop for 3 weeks then repeat cycle for 12 months, Notes: finished 07/2017Not-Taking/PRN Ciclopirox Olamine 0.77% Cream external Apply to effected areas twice a dayNot-Taking/PRN Triamterene-HCTZ 37.5-25 MG Tablet 1 tablet in the morning Orally Once a dayNot-Taking/PRN Isosorbide Mononitrate ER 30 MG Tablet Extended Release 24 Hour 1 tablet Orally Once a dayNot-Taking/PRN amLODIPine Besylate 5 MG Tablet 1 tablet Orally Once a dayMedication List reviewed and reconciled with the patient * Allergies:?Erythromycin: popeye hBiaxin: rashBactrimAmoxicillin: rashSulfa AntibioticsAdhesiveBroccoli: intolerancePenicillin: rashyes[Allergies Verified] Objective: * Vitals:?Ht: 5ft 6in, Wt:160, BMI:25.82, Shoe size:8. * ???Past Orders: ???Lab:HEMOGLOBIN A1C (GLYCO HEMOGLOBIN) (Order Date - 11/22/2022) (Collection Date - 11/22/2022) ? Value Reference Range ?HEMOGLOBIN A1C (HH) 5.9 * Examination: ???Ophthalmology Referral: ?DIABETES EYE EXAM?General Examination: ?GENERAL APPEARANCE:?Reveals a pleasant, alert, well nourished, well- developed, well hydrated individual, who demonstrates proper attention to hygiene/body habitus, and is in no acute distress, Pt serves as own historian for office visit today.?ORIENTED:?person, place, and time.?Nails: ?NAILS are:? Elongated, overgrown, dystrophic, lytic, greater than 3mm thick, discolored and friable with crumbly malodorous subungual debris, with pain on palpation,, 1-5 B/L.?Orthopedic: ?BUNION:? Medially prominent 1st MPJ, (+) Pain on palpation, inflammation present medially, Lateral tracking 1st MPJ incompletely reducible, B/L.?Neurological: ?TINEL'S COMPRESSION:? Negative, Saphenous nerve distribution, B/L.?Vascular: ?DP PULSES:?, 2/4, B/L.?PT PULSES:?, 2/4, B/L.?CAPILLARY FILL TIME:?immediate, all digits, B/L.?SKIN TEMPERTURE GRADIENT OF THE LOWER EXTERMITIES:?normal, warm to cool, proximal to distal, B/L, B/L.?HAIR GROWTH/TEXTURE/ELASTICITY/TURGOR:?normal, B/L.? Assessment: * Assessment: 1.?Tinea unguium - B35.1?2.? Hallux valgus (acquired), right foot - M20.11 (Primary)?3.?Pain in right toe(s) - M79.674?4.?Pain in left toe(s) - M79.675?5.?Type 2 diabetes mellitus without complications - E11.9?6.?Pain in left foot - M79.672?7.?Pain in left ankle and joints of left foot - M25.572?8.?Bursitis of left foot - M77.52?9.?Hallux valgus (acquired), left foot - M20.12?10.?Pain in right foot - M79.671?11.?Pain in right ankle and joints of right foot - M25.571?12.?Bursitis of right foot - M77.51? Plan: * Treatment: * Procedures:?Debride Nail 6-10:?Nail debridement?Nail debridement performed extensively to reduce/remove overall nail length and girth, subungual debris, and necrotic tissue, by manual and electrical means with use of a nail nipper and/or dremel, to more viable healthy nail plate or bed tissue 6-10. Silver nitrate used for any petechial bleeding as necessary. Patient chooses, no pharmaceutical tx (41158).? * Procedure Codes:?26332 DEBRI DE NAIL, 6 OR MORE, Modifiers: XS * Preventive Medicine:? ??Counseling:?Discussion:?-13: Office or other outpatient visit for the evaluation and management of an established patient, which required a medically appropriate history and/or examination and LOW level of DECISION MAKING for: 1 STABLE ACUTE UNCOMPLICATED PROBLEM, 2 OR MORE MINOR PROBLEMS, OR 1 STABLE CHRONIC PROBLEM, THAT POSE(S) A LOW RISK FOR MORBIDITY/MORTALITY. The visit on the day of the encounter encompassed interpreting the data and educating the patient as to the nature of their condition, treatment options available according to their individual PMH, meds, allergies, and overall health/living conditions, as well as any potential risks or complications that may occur from a failure to adhere to, and participate in, the recommended course of therapy. The discussion included a complete verbal, and/or written explanation of the examination results, any x-rays taken, the proposed diagnosis, and outline of the treatment plan. A schedule for future care needs was also explained. The patient verbalized an understanding of the instructions at this time and agreed to be an active participant in their treatment. If the patient should think of any questions or concerns after the visit, I have encouraged the patient to call the office.?BioMech.:?I discussed the Pts foot biomechanics with them and how it relates to their problem.?Digital Treatment:?HV - I explained to the patient the risks/benefits of all the different treatment options for their pain including: No treatment at all, Rest, Ice, New/supportive/wider/deeper Shoegear, Digital Padding/Strapping/Taping/Bracing/Gel protective sleeves, Foot/Ankle AFO Bracing, Stretching exercises, Deep Tissue Massage, Arch support/shoe inserts with splay metatarsal padding, and Custom orthoses. I insisted that any digital devices be removed daily and not worn overnight for safety. The patient is to carefully examine the toes daily for any skin irritation while using any splinting or padding device. The advantages and disadvantages of each option were discussed and the patients questions re: shoegear, padding, custom vs prefabricated inserts, activity level, and consistency in home treatment regimens for optimal success were answered to their verbally confirmed satisfaction, Recomm, rest, ice, proper shoegear, padding, orthotics, anti-inflammatories or tylenol as tolerated, topical analgesics, cortisone injections.? * Follow Up:?prn * Images: * Sign off status: Completed true * Provider:?Jennifer Agarwal DPM Date:?2023 Generated for Gian domingo/Jacinda/Joycelyn on:?2024 06:46 AM EST History and Physical Notes * HPI (History of Present Illness) Category Sub-Category Detail Notes Category Not es Painful Nails Pt States Last PCP Visit: Date:: 07/29/2023 Foot Pain Location: Inside, Great toe joint, B/L Duration: 1 month Course: worse Aggravated: any pressure Treatments: rest/alter normal da aye activity Examination Category Sub-Category Detail Notes Category Not es Neurological TINEL'S COMPRESSION: Negative, S aphenous nerve distribution, B/L Orthopedic BUNION: Medially promine nt 1st MPJ, (+) Pain on palpation, inflammation present medially, Lateral tracking 1st MPJ incompletely reducible, B/L General Examination GENERAL APPEARANCE: Reveals a pleasant, alert, well nourished, well-developed, well hydrated individual, who demonstrates proper attention to hygiene/body habitus, and is in no acute distress, Pt serves as own historian for office visit today ORIENTED: person, place, and t francesca Ophthalmology Referral DIABETES EYE EXAM Diabetic Retinopa thy Screening:: Yes Findings of Diabetic Eye Exam:: no retin opathy Vascular DP PULSES (B): , 2/4, B/L PT PULSES (B): , 2/4, B/L CAPILLARY FILL TIME: immediate, all digi ts, B/L TEMPERTURE GRADIENT (C): normal, warm to cool, proximal to distal, B/L, B/L TROPHIC CONDITION-TEXTURE/ELASTICITY/TURGOR/HAIR GROWTH (B): normal, B/L Nails NAILS are: Elongated, overg rown, dystrophic, lytic, greater than 3mm thick, discolored and friable with crumbly malodorous subungual debris, with pain on palpation,, 1-5 B/L
--- OUTSIDE RECORDS SUMMARY | 2024-02-14 06:46 | XMS_ITS | Patient Health Record ---
Author Organization [facility] Address [address] [place] [address] Care Team Providers Care Exotic Dancer Name Role Phone Michael Orellana MD Primary [...] Active Adhesive Unknown Allergy Active REASON FOR REFERRAL No Information MEDICATIONS Medication SIG (Take, Route, Frequency, Duration) Notes Start Date End Date Status Metoprolol Succinate 50 MG as directed Orally 50 mg with 25 mg twice a day Active Atorvastatin Calcium 80 MG 1 tablet Orally Once a day Active Valsartan-hydroCHLOROthia zide 320-12.5 MG 1 tablet Orally Once a day for 30 day(s) Active Magnesium 200 MG 2 tablets with a meal Orally Once a day for 30 day(s) Active hydroCHLOROthiazide 12.5 MG Oral for 90 Active [...] Once a day for 30 day(s) Active IMMUNIZATIONS Vaccine Route Administration Date Status Comme nts Influenza Unknown 12/01/2017 Administered Influenza Unknown 01/22/2022 Administered SOCIAL HISTORY Tobacco Use: Social History Observation [...] W/U Status Risk SNOMED Code Notes Problem Colon cancer screening (Z12.11) Active confirmed 266394032 Problem care home (current) use of aspirin (Z79.82) Active confirmed [id number] Problem Rectal bleeding (K62.5) Active confirmed 27105120 Problem Constipation, unspecified constipation type (K59.00) Active confirmed 89573634 Problem Abnormal CT scan, stomach (R93.3) Active confirmed 857779660 VITAL SIGNS Blood pressure diastolic 00 mm Hg 02/10/2024 Height 66 in 02/10/2024 Blood pressure systolic 00 mm Hg 02/10/2024 Weight 182 lbs 02/10/2024 BMI 29.37 kg/m2 02/10/2024 Encounters Encounter Location Date Provider Diagnosis [facility] [address] [place] [address] 02/10/2024 Carroll Aquino Jr Abnormal CT scan, stomach R93.3 ASSESSMENTS Encounter Date Diagnosis Assessment Notes Treatment Notes Treatment Clinical Notes 02/10/[address] scan, stomach (ICD-10 - R93.3) PLAN OF TREATMENT Future Test Test Name Order Date COLONOSCOPY 07/06/2018 COLONOSCOPY 02/02/2022 UPPER GI ENDOSCOPY 02/10/2024 Next Appt Details Provider Name:Carroll melendrez Jr, 04/04/2024 08:10:00 AM, [address] [facility] , [place], [place], [phone], Insurance Providers Payer Name Payer Address Payer Phone Subscriber Number Group Number Insured Name Patient Relationship to Insured Coverage Start Date Coverage End Date MEDICARE [place] [address] [place] [address] [id number] NIRAJ BLACK Self - patient is the insured [employer] CLAIMS [address] [place] [phone] [id number] NIRAJ BLACK Self - patient is the insured MEDICAL (GENERAL) HISTORY Medical History History ICD Code obstructive sleep apnea/CPAP Atrial fibrillation [place] 05/14/2010 diverticulitis Uterine cancer Diabetes mellitus type 2 Hypertension Surgical History Surgery Date(Month/Year) stent placement x2 cardiac ablation Loop recorder implantation Bilateral cataract repair dilatation and curettage hysterectomy due to uterine cancer 04/15
--- OUTSIDE RECORDS SUMMARY | 2024-02-14 06:46 | XMS_ITS ---
Author Organization [facility] Address [address] [place] [address] Care Team Providers Care Hr Business Partner Consultant Name Role Phone Michael Orellana MD Primary Care Provider Unavaila ble Black, Jennifer Unavailable [phone] Allergies Allergen (clinical drug ingredient) Drug/Non Drug [...] action (substance) Sulfa Antibiotics Unknown Drug Allergy A ctive REASON FOR VISIT At Risk Footcare, Foot pain, Toe Irritation Medications Medication SIG (Take, Route, Frequency, Duration) Notes Start Date End Date Status Solifenacin Succinate 5 MG 1 tablet Orally Once a day for 30 day(s) Not-Taking Aspirin Adult Low Strength 81 MG 1 tablet Orally Once a day Not-Taking Hydrocortisone 1 % 1 application to affected area Externally Twice a day to affected areas on feet for 30 days Not-Taking zzzCompression Stockings 20-30mm Hg . . . for . Not-Taking metFORMIN HCl 500 MG 1 tablet with a meal Orally Once a day for 30 day(s) Not-Taking Atorvastatin Calcium 80 MG 1 tablet Orally Once a day Active Losartan Potassium-HCTZ 50-12.5 MG 1 tablet Orally Once a day Active Metoprolol Tartrate 75 MG 1 tablet Orally Twice a day Active dilTIAZem HCl Active Vitamin D Active hydroCHLOROthiazide 25 MG 1 tablet in the morning Orally Once a day Active Myrbetriq 25 MG as directed Orally Active Gabapentin Active Magnesium 200mg once a day Active Baby Aspirin Active Nitrofurantoin Activ e Extra Depth Orthopedic Shoes (1 Pair) with Customized Heat Molded Multidensity Innersoles (3 Pair) as directed Dx: NIDDM/Polyneuropat hy (E11.42), Hammertoe Foot Deformity (M20.41,M20.42), Preulcerative Skin Lesion(s) (L85.1 01/13/2024 Active Triamterene-HCTZ 37.5-25 MG 1 tablet in the morning Orally Once a day Not-Taking Isosorbide Mononitrate ER 30 MG 1 tablet Orally Once a day Not-Taking amLODIPine Besylate 5 MG 1 tablet Orally Once a day Not-Taking Cipro 500 MG 1 tablet Orally every 12 hrs for 10 day(s) 01/24/2018 Not-Taking Triamterene Not-Taki ng Night Splint AFO - L1930 as directed 05/28/2016 Not-Taking LamISIL 250 MG 1 tablet Orally Once a day for 7 days then stop for 3 weeks then repeat cycle for 12 months for 360 days finished 07/201710/05/2016 Not-Taking Ciclopirox Olamine 0.77% external Apply to effected areas twice a day for 30 days 11/14/2014 Not-Taking Clopidogrel Bisulfate 75 MG Orally Not-Taking oxyBUTYnin Not-Takin g Doxycycline Hyclate 100 MG 1 tablet Orally Once a day for 10 day(s) 03/07/2020 Not-Taking Social History Tobacco Use: Social History Observation Description Date Details (start date - stop date) Never Smoker NA - NA Tobacco use other than smoking: Question Answer Notes Are you an other tobacco user? No Tobacco Control (Standard) Question Answer Notes Tobacco use: Nonsmoker Additional Findings: Tobacco non-user Current no nsmoker AUDIT-C (Standard) Question Answer Notes Did you have a drink contain ing alcohol in the past year? Yes How often did you have six o r more drinks on one occasion in the past year? Less than monthly (1 point) How many drinks did you have on a typical day when you were drinking in the past year? 1 or 2 drinks (0 point) How often did you have a dri nk containing alcohol in the past year? Monthly or less (1 point) Points 2 Interpretation Negative Vital Signs Height 5ft 6in in 01/13/2024 Weight 176 lbs 01/13/2024 BMI 28.4 kg/m2 01/13/2024 Procedures Procedure Date Ordered Date Performed Result Body Sit e 50287-OPDXYTD NAIL, 6 OR MORE 01/13/2024 N/A 02770-XRNU SKIN LESIONS, 2 TO 4 01/13/2024 N/A Encounters Encounter Location Date Provider Diagnosis [facility] [address] [address] 01/13/2024 Jennifer Black Neuritis M79.2 ; Oth er hammer toe(s) (acquired), right foot M20.41 ; Hallux valgus (acquired), right foot M20.11 ; Tinea unguium B35.1 ; Pain in right foot M79.671 ; Pain in right ankle and joints of right foot M25.571 ; Type 2 diabetes mellitus with diabetic polyneuropathy E11.42 and Other hammer toe(s) (acquired), left foot M20.42 Assessments Encounter Date Diagnosis (ICD Code) Assessment Notes Treatment Notes Treatment Clinical Notes Section Notes 01/13/2024 Neuritis (ICD-10 - M79.2) 01/13/2024 Other hammer toe(s) (acquired), right foot (ICD-10 - M20.41) Patient Educated with: DIABETIC FOOT CARE INSTRUCTIONS. pdf (DIABETIC FOOT CARE INSTRUCTIONS. pdf) 01/13/2024 Hallux valgus (acquired), right foot (ICD-10 - M20.11) 01/13/2024 Tinea unguium (ICD-10 - B35.1) 01/13/2024 Pain in right foot (ICD-10 - M79.671) 01/13/2024 Pain in right ankle and joints of right foot (ICD-10 - M25.571) 01/13/2024 Type 2 diabetes mellitus with diabetic polyneuropathy (ICD-10 - E11.42) 01/13/2024 Other hammer toe(s) (acquired), left foot (ICD-10 - M20.42) Plan Of Treatment Medication Medication Name Sig Start Date Stop Date Notes Extra Depth Orthopedic Shoes (1 Pair) with Customized Heat Molded Multidensity Innersoles (3 Pair) as directed Dx: NIDDM/Polyneuropathy (E11.42), Hammertoe Foot Deformity (M20.41,M20.42), Preulcerative Skin Lesion(s) (L85.1 01/13/2024 Treatment Notes Assessment Notes Other hammer toe(s) (acquired), right fo ot Patient Educated with: DIABETIC FOOT CARE INSTRUCTIONS.pdf (DIABETIC FOOT CARE INSTRUCTIONS.pdf) Pending Test Test Name Order Date 70971-ZKISWET NAIL, 6 OR MORE 01/13/2024 66075-MVSM SKIN LESIONS, 2 TO 4 01/13/20 Next Appt Details Follow Up: prn, Reason: Provider Name:Jennifer Agarwal , 03/16/2024 08:15:00 AM, [address] [place] [address], [phone], Provider Name:Jennifer Agarwal , 05/25/2024 08:15:00 AM, [address] [place] [address], [phone], Procedure Notes * Category Sub-Category Detail Notes Debride Nail 6-10 Nail debridement Performance o f this nail treatment by a nonprofessional would put this patients foot and overall health at risk. Therefore, nail debridement was performed extensively to reduce/remove overall nail length, girth, thickness, subungual debris, and necrotic tissue, by manual and/or electrical means through the use of a nail nipper and/or dremel-type snag grinder, to a more viable healthy nail plate or bed tissue 6-10. Silver nitrate used for any petechial bleeding as necessary. Definitive antifungal treatment options have been reviewed and discussed with the patient. The patient chooses, no pharmaceutical tx - 63627 Keratoma Treatment Parring or Cutting o f Benign Hyperkeratotic Lesion(s) (-56) 2-4 Lesions - The Benign hyperkeratotic lesions, ( 4 ) number of lesions in total, as described in exam, were pared, and/or cut utilizing a sterile 15 blade, tissue nippers, and/or power dremel instrumentation - 68961 Progress Notes * Starla OLIVADOMatthew: (73 yo F)Acc No.[id number]:01/13/2024 Progress Note Patient:?Liang OLIVA luna Provider:?Jennifer Agarwal DPM :1950???Age:73 Y???Sex:Female D ate:01/13/2024 Address: [address] [id number] Pcp:Michael Orellana MD Subjective: * Chief Complaints: * ???At Risk FootcareFoot pain Toe Irritation * HPI: ???Foot Pain:?Location:?Inside, Great toe joint, , RIGHT.?Duration:?, several months.?Course:?, unchanged.?Aggravated:?any pressure.?Treatments:?rest/alter normal daily activity,change in shoes still did not help.?Toe pain:?Location:?B/L feet.?Duration:?several years.?Course:?worse.?Aggravated by:?shoes, any pressure.?Treatments:?change in shoes.?At Risk footcare:?Pt States Last PCP Visit:?Date?12/15/2023 * ROS:?General/Constitutional:?Nausea?denies.?Vomiting?denies.?Hunger Thirst?denies.?Loss appetite?denies.?Chills?denies.?Fatigue?denies.?Fever?denies.?Night Sweats?denies.?Unexplained weight loss?denies.?Unexplained weight gain?denies.?HEENTM:?Dentures?denies.?Dizziness?denies.?Glasses/contacts?admits.?Retinopathy?den ies.?Blurred/double vision?denies.?TMJ?denies.?Discharge/drainage?denies.?Implants?denies.?Sore throat?denies.?Dental implants?denies.?Hard of hearing ?denies.?Difficulty chewing/swallowing/speaking?denies.?Nose bleeds?denies.?Sore mouth?denies.?Respiratory:?On O xygen?denies.?Pneumonia/pleurisy?denies.?Bronchitis?denies.?Emphysema?denies.?Co ughing?denies.?Cough blood?denies.?Shortness of breath?denies.?Wheezing?denies.?Cardiovascular:?Pacemaker?denies.?MVP?denies.?WPW?denies.?CHF?denies.?Heart attack?denies.?Septal defect?denies.?Rapid beat?denies.?Chest pain ?denies.?Atrial Fib.?denies.?Murmur/Palpitations?denies.?Gastrointestinal:?Hemorrhoids?denies.?Stomach/Abdominal pain?denies.?Dark blood stool?denies.?Irritable bowel ?denies.?Constipation?denies.?Diarrhea?denies.?Hematology:?Swelling?denies.?Clots?denies.?Varicose Veins?denies.?Bruising?denies.?Bleeding problem?denies.?Genitourinary:?Blood urine?denies.?Frequent/Painfu/urination/bladder control?denies.?Kidney stones?denies.?Infection (UTI)?denies.?Nephropathy?denies.?sex trans dis (STD)?denies.?Prostate?denies.?Musculoskeletal:?Hammertoes?admits.?Bunions?admits.?Back Pain?admits.?Muscle Cramps/ Resting?denies.?Muscle cramps / walking?denies.?Generalized aches and pains?denies.?Weakness?denies.?Integ.:?[place]?denies.?Scars?denies.?Corns/calluses?admits.?Ingrown nails?admits.?Painful nails?admits.?Open Sores?denies.?Rashes?admits.?Neurologic:?Difficulty sleeping?denies.?Brain disorder?denies.?Numbness?denies.?Balance t rouble?denies.?Confusion?denies.?Fainting/blackouts?denies.?Tingling?denies.?Finn mors?denies.? * Medical History:? * Surgical History:?heart surg [place] unspecified 04/2013stent insertion blation 04/2013Lupereapeater Placement - Cardiac procedure 2018Uterus Bx 04/2018right artery stent 01/31/2019hysterectomy- Cancer cells 04/11/21D and C 03/15 * Hospitalization/Major Diagno stic Procedure:?Visit to motor bus driver for lupur placement - measure heart beats 06/2017[facility]oley Barry- [place] [facility] [place] Chauhan Adan- Diverticulosis * Family History:?Mother: dece ased, diagnosed with Unspecified cerebral artery occlusion with cerebral infarction.?Father: , diagnosed with Other malignant neoplasm of unspecified site.? * Social History:?Tobacco Use:?Tobacco use other than smoking?Are you an other tobacco user??No ?Tobacco Control (Standard)?Tobacco use:?Nonsmoker ?Additional Findings: Tobacco non-user?Current nonsmoker ???Drugs/Alcohol:?Drugs?Have you used drugs other than those for medical reasons in the past 12 months??No ???Miscellaneous:?Caffeine: yes, 1-2 cups per day. ?Children: yes, 2. ?Exercise: yes, walking, occasional. ?Marital status: . 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 ???Drug/Alcohol:?AUDIT-C (Standard)?Did you have a drink containing alcohol in the past year??Yes ?How often did you have six or more drinks on one occasion in the past year??Less than monthly (1 point) ?How many drinks did you have on a typical day when you were drinking in the past year??1 or 2 drinks (0 point) ?How often did you have a drink containing alcohol in the past year??Monthly or less (1 point) ?Points?2 ?Interpretation?Negative * Medications:?TakingNitrofura ntoin hydroCHLOROthiazide 25 MG Tablet 1 tablet in the morning Orally Once a day Myrbetriq 25 MG Tablet Extended Release 24 Hour as directed Orally Gabapentin Magnesium , Notes to Pharmacist: 200mg once a dayBaby Aspirin Atorvastatin Calcium 80 MG Tablet 1 tablet Orally Once a day Losartan Potassium- HCTZ 50-12.5 MG Tablet 1 tablet Orally Once a day Metoprolol Tartrate 75 MG Tablet 1 tablet Orally Twice a day dilTIAZem HCl Vitamin D Taking Nitrofurantoin Taking hydroCHLOROthiazide 25 MG Tablet 1 tablet in the morning Orally Once a day Taking Myrbetriq 25 MG Tablet Extended Release 24 Hour as directed Orally Taking Gabapentin Taking Magnesium , Notes to Pharmacist: 200mg once a dayTaking Baby Aspirin Taking Atorvastatin Calcium 80 MG Tablet 1 tablet Orally Once a day Taking Losartan Potassium-HCTZ 50-12.5 MG Tablet 1 tablet Orally Once a day Taking Metoprolol Tartrate 75 MG Tablet 1 tablet Orally Twice a day Taking dilTIAZem HCl Taking Vitamin D Not-Taking/PRNSolifenacin Succinate 5 MG Tablet 1 tablet Orally Once a day Aspirin Adult Low Strength 81 MG Tablet Delayed Release 1 tablet Orally Once a day Hydrocortisone 1 % Cream 1 application to affected area Externally Twice a day to affected areas on feet zzzCompression Stockings 20-30mm Hg 1 pair closed toe- knee high . . . metFORMIN HCl 500 MG Tablet 1 tablet with a meal Orally Once a day Clopidogrel Bisulfate 75 MG Tablet Orally oxyBUTYnin Doxycycline Hyclate 100 MG Tablet 1 tablet Orally Once a day Cipro 500 MG Tablet 1 tablet Orally every 12 hrs Triamterene Night Splint AFO - L1930 as directed LamISIL 250 MG Tablet 1 tablet Orally Once a day for 7 days then stop for 3 weeks then repeat cycle for 12 months , Notes to Pharmacist: finished 07/2017Ciclopirox Olamine 0.77% Cream external Apply to effected areas twice a day Triamterene-HCTZ 37.5-25 MG Tablet 1 tablet in the morning Orally Once a day Isosorbide Mononitrate ER 30 MG Tablet Extended Release 24 Hour 1 tablet Orally Once a day amLODIPine Besylate 5 MG Tablet 1 tablet Orally Once a day Medication List reviewed and reconciled with the patientNot-Taking/PRN Solifenacin Succinate 5 MG Tablet 1 tablet Orally Once a day Not-Taking/PRN Aspirin Adult Low Strength 81 MG Tablet Delayed Release 1 tablet Orally Once a day Not-Taking/PRN Hydrocortisone 1 % Cream 1 application to affected area Externally Twice a day to affected areas on feet Not-Taking/PRN zzzCompression Stockings 20-30mm Hg 1 pair closed toe- knee high . . . Not-Taking/PRN metFORMIN HCl 500 MG Tablet 1 tablet with a meal Orally Once a day Not-Taking/PRN Clopidogrel Bisulfate 75 MG Tablet Orally Not-Taking/PRN oxyBUTYnin Not-Taking/PRN Doxycycline Hyclate 100 MG Tablet 1 tablet Orally Once a day Not-Taking/PRN Cipro 500 MG Tablet 1 tablet Orally every 12 hrs Not-Taking/PRN Triamterene Not-Taking/PRN Night Splint AFO - L1930 as directed Not-Taking/PRN LamISIL 250 MG Tablet 1 tablet Orally Once a day for 7 days then stop for 3 weeks then repeat cycle for 12 months , Notes to Pharmacist: finished 07/2017Not-Taking/PRN Ciclopirox Olamine 0.77% Cream external Apply to effected areas twice a day Not-Taking/PRN Triamterene-HCTZ 37.5-25 MG Tablet 1 tablet in the morning Orally Once a day Not-Taking/PRN Isosorbide Mononitrate ER 30 MG Tablet Extended Release 24 Hour 1 tablet Orally Once a day Not-Taking/PRN amLODIPine Besylate 5 MG Tablet 1 tablet Orally Once a day Medication List reviewed and reconciled with the patient * Allergies:?Erythromycin: popeye hBiaxin: rashBactrimAmoxicillin: rashSulfa AntibioticsAdhesivePenicillin: rashyes[Allergies Verified] Objective: * Vitals:?Ht: 5ft 6in, Wt:176, BMI:28.4, Shoe size: 8, BS: 136, Ht-cm: 167.64 cm, Wt-k.83 kg. * ???Past Orders: ???Lab:HEMOGLOBIN A1C (GLYCO HEMOGLOBIN) (Order Date - 01/10/2024) (Collection Date & Time - 01/10/2024 08:12 AM) ? Value Reference Range ?TOTAL HEMOGLOBIN (HGBA1C) 5.9 * Examination: ???Ophthalmology Referral: ?DIABETES EYE EXAM?Nails: ?NAILS are:? Elongated, overgrown, dystrophic, lytic, greater than 3mm thick, discolored and friable with crumbly malodorous subungual debris, with dull to no pain on palpation due to neuropathy, 2-5 B/L.?Orthopedic: ?BUNION:? Medially prominent 1st MPJ,? Cont.(+) Pain on palpation, inflammation present medially, Lateral tracking 1st MPJ incompletely reducible, Right, inflammation present, erythema at exostosis.?DIGITAL DEFORMITIES:?Digital contracture, PIPJ, 2-5 B/L, incompl-reducible to push-up test, no over, nor underlapping,?there is?evidence of shoe producing skin irritation.?FOOTWEAR:?worn, non-supportive, shoe gear properties exacerbate patient's foot/toe deformity.?Neurological: ?SENSORY:?Neurological exam demonstrates , reduced light touch sensation , reduced sharp/dull pin prick discrimination , 5.07 monofilament test performed at plantar aspects of 5 varied sites per foot shows sensation , reduced , at Forefoot , Pt relates ,minor?burning , numbness.?Vascular: ?DP PULSES(B):?, 2/4, B/L.?PT PULSES(B):?, 2/4, B/L.?CAPILLARY FILL TIME:?immediate, all digits, B/L.?TROPHIC CONDITION-TEXTURE/ELASTICITY/TURGOR/HAIR GROWTH(B):?normal, B/L.?TEMPERTURE GRADIENT(C):?normal, warm to cool, proximal to distal, B/L, B/L.?Dermatologic: ?SKIN FINDINGS:??Skin exam reveals Keratotic lesion(s) located at, IPJ , TA , T5 , SUB MTH (s) , 1 , B/L.?General Examination: ?FOOT EXAM:?Footwear Evaluation? Assessment: * Assessment: 1.?Other hammer toe(s) (acqu ired), right foot - M20.41 (Primary)???Specify :Chronic problem, Worse (4),Rx Management (4)???2.?Neuritis - M79.2???3.?Hallux valgus (acquired), right foot - M20.11???Specify :chronic problem unchanged???4.?Tinea unguium - B35.1???5.?Pain in right foot - M79.671???6.?Pain in right ankle and joints of right foot - M25.571???7.?Type 2 diabetes mellitus with diabetic polyneuropathy - E11.42???8.?Other hammer toe(s) (acquired), left foot - M20.42???Specify :Chronic problem, Worse (4),Rx Management (4)??? Plan: * Treatment: 2.?Tinea unguium?Procedure: 24564-VQNKCTW NAIL, 6 OR MORE ?Procedure: 79723-FPTS SKIN LESIONS, 2 TO 4 * Procedures:?Debride Nail 6-10:?Nail debridement?Performance of this nail treatment by a nonprofessional would put this patients foot and overall health at risk. Therefore, nail debridement was performed extensively to reduce/remove overall nail length, girth, thickness, subungual debris, and necrotic tissue, by manual and/or electrical means through the use of a nail nipper and/or dremel-type snag grinder, to a more viable healthy nail plate or bed tissue 6-10. Silver nitrate used for any petechial bleeding as necessary. Definitive antifungal treatment options have been reviewed and discussed with the patient. The patient chooses, no pharmaceutical tx - 62650.?Keratoma Treatment:?Parring or Cutting of Benign Hyperkeratotic Lesion(s)?(-56) 2-4 Lesions - The Benign hyperkeratotic lesions, ( 4 ) number of lesions in total, as described in exam, were pared, and/or cut utilizing a sterile 15 blade, tissue nippers, and/or power dremel instrumentation - 31426.? * Procedure Codes:?53997 DEBRI DE NAIL, 6 OR MORE, Modifiers: XS 48937 TRIM SKIN LESIONS, 2 TO 4, Modifiers: XS * Preventive Medicine:? ??Counseling:?Discussion:?-14: Office or other outpatient visit for the evaluation and management of an established patient, which required a medically appropriate history and/or examination and MODERATE level of DECISION MAKING for: 1 OR MORE CHRONIC PROBLEM(S) THATS WORSENING, 2 STABLE CHRONIC PROBLEMS, A NEWLY DIAGNOSED PROBLEM WITH UNCERTAIN PROGNOSIS, AN ACUTE COMPLICATED INJURY WITH MULTIPLE TREATMENT OPTIONS, OR AN ACUTE PROBLEM WITH ACCOMPANYING SYSTEMIC SYMPTOMS, THAT POSE(S) A MODERATE RISK OF MORBIDITY. THIS CONDITION MAY ALSO INCLUDE RX DRUG MANAGEMENT, OR A DECISON FOR MINOR SURGERY. The visit on the day of the [...] have encouraged the patient to call the office.?Digital Surgery:?Digital surgery was discussed with the patient, including the risks of surgery(below), vs not having surgery (persistent pain, deformity, risk for skin ulceration/infection, loss of toe), the potential surg complications, the anesthesia, and the usual post-op course. No guarentees were given. We discussed the potential procedure complications including, but not limited to: pain, swelling, bleeding, scarring, numbness, infection, delayed/non healing, floppy/unstable/shorthened toe, recurrence, failure of the procedure, overcorrection leading to plantarflexed/downward positioned toe, recurrence, need for further surgery, as well as the possibility for loss of the toe itself. We discussed the use of local anesthesia, and the usual post-op course for healing. No guarentees were given. The patient verbally indicated a full understanding of the above conversation, and any other of their questions were answered to their satisfaction. Alternatives to the procedure were also discussed, including conservative care. I also discussed the usual post-operative course and gave no guarantees regarding outcome, We elected to try conservative treatment at the present time.?Digital Treatment:?HT- I explained to the patient the possible etiologies of Hammertoes, including genetics/foot type/shoegear/activity level/exercise routine and the risks/benefits of all the different treatment [...] or tylenol as tolerated, topical analgesics, cortisone injections.?Shoe Gear Counseling:?SHOE Rx - The patient was counseled in great detail on their muscoloskeletal foot and toe deformities which coincided with the dermatological presentations visualized on exam. We discussed how their deformities put the integrity of their feet at risk for potential pedal complications which makes the accomidative diabetic shoes and cutomizable inserts medically necessary. We discussed the different shoe and insert treatment types and options, as well as the important advantages for adhering to regularly wearing these accomidative devices daily. The patient was made aware of the fact that a failure to abide by these recommedations may be deleterious to their foot health as they are able to prevent many pedal complications such as skin irritation, skin ulceration, infection, and even loss of toe/foot/leg/or life. Time was also spent with the patient dispensing and discussing proper diabetic footcare techniques including daily skin moisturization, daily foot inspection for any interruption in skin integrity including open lesions, or sign of infection such as redness/malodor/drainage/swelling. Also discussed and recommended were procedures regarding daily shoe inspection for the presence of internal foreign bodies as well as any visualized irregular shoe or insert wear. Patient questions re: shoes, inserts, and self foot inspections were answered to their satisfaction as the patient verbally confirmed a full understanding of the above information. A Rx for Extra Depth Orthopedic Shoes with 3 pair of custom heat-molded inserts was dispensed.? * Follow Up:?prn * Images: * Sign off status: Completed true * Provider:?Jennifer Agarwal DPM Date:?2023 Generated for Gian domingo/Jacinda/Gingeritting on:?2024 06:46 AM EST History and Physical Notes * HPI (History of Present Illness) Category Sub-Category Detail Notes Category Not es Toe pain Location: B/L feet Duration: several years Course: worse Aggravated by: shoes, any pressure Treatments: change in shoes At Risk footcare Pt States Last PCP Visit: Date: 4 Foot Pain Location: Inside, Great toe joint, , R IGHT Duration: , several months Course: , unchanged Aggravated: any pressure Treatments: rest/alter normal da aye activity,change in shoes still did not help Examination Category Sub-Category Detail Notes Category Not es Neurological SENSORY: Neurological exa m demonstrates , reduced light touch sensation , reduced sharp/dull pin prick discrimination , 5.07 monofilament test performed at plantar aspects of 5 varied sites per foot shows sensation , reduced , at Forefoot , Pt relates ,minor burning , numbness Dermatologic SKIN FINDINGS: Skin exam reveal s Keratotic lesion(s) located at, IPJ , TA , T5 , SUB MTH (s) , 1 , B/L Orthopedic BUNION: Medially promine nt 1st MPJ, Cont.(+) Pain on palpation, inflammation present medially, Lateral tracking 1st MPJ incompletely reducible, Right, inflammation present, erythema at exostosis FOOTWEAR: worn, non-supportive , shoe gear properties exacerbate patient's foot/toe deformity DIGITAL DEFORMITIES: Digital contracture , PIPJ, 2-5 B/L, incompl-reducible to push-up test, no over, nor underlapping, there is evidence of shoe producing skin irritation General Examination FOOT EXAM: Lower Extrem ity Neurological Exam performed:: Yes Footwear Evaluation Footwear Evaluation performe d:: Yes Ophthalmology Referral DIABETES EYE EXAM Procedure Perform ed:: Yes ?Date of Exam Performed: 05/24/2023 Diabetic Retinopathy Screening:: Yes Findings of Diabetic Eye Exam:: [...] friable with crumbly malodorous subungual debris, with dull to no pain on palpation due to neuropathy, 2-5 B/L
--- OUTSIDE RECORDS SUMMARY | 2024-02-14 06:46 | XMS_ITS | Patient Health Record ---
[facility] [place] Address [address] [place] [address] Care Team Providers Care Outside Contractor Sales Name Role Phone Michael Orellana MD Primary Care Provider Unavaila ble Black, Jennifer Unavailable [phone] Allergies Allergen (clinical drug ingredient) Drug/Non Drug [...] Sulfa Antibiotics Unknown Drug Allergy A ctive Results Component Value Reference Range Notes HEMOGLOBIN A1C (GLYCOHEMOGLO BIN) Reviewed date:01/13/2024 08:12:52 AM Interpretation: Performing Lab: Notes/Report: TOTAL HEMOGLOBIN (HGBA1C) 5.9 Reason For Referral No Information Medications Medication SIG (Take, Route, Frequency, Duration) Notes Start Date End Date Status Metoprolol Tartrate 75 MG 1 tablet Orally Twice a day Active Cipro 500 MG 1 tablet Orally every [...] 1 tablet Orally Once a day Not-Taking Solifenacin Succinate 5 MG 1 tablet Orally [...] Once a day for 30 day(s) Not-Taking Clopidogrel Bisulfate 75 MG Orally Not-Taking oxyBUTYnin Not-Takin g Doxycycline Hyclate 100 MG 1 tablet Orally Once a day for 10 day(s) 03/07/2020 Not-Taking dilTIAZem HCl Active Vitamin D Active Nitrofurantoin Activ e hydroCHLOROthiazide 25 MG 1 tablet in the morning Orally Once a day Active Myrbetriq 25 MG as directed Orally Active Gabapentin Active Magnesium 200mg once a day Active Baby Aspirin Active Atorvastatin Calcium 80 MG 1 tablet Orally Once a day Active Losartan Potassium-HCTZ 50-12.5 MG 1 tablet Orally Once a day Active Extra Depth Orthopedic Shoes (1 Pair) with Customized Heat Molded Multidensity Innersoles (3 Pair) as directed Dx: NIDDM/Polyneuropat hy (E11.42), Hammertoe Foot Deformity (M20.41,M20.42), Preulcerative Skin Lesion(s) (L85.1 01/13/2024 Active Immunizations Vaccine Route Administration Date Status Comme nts COVID-19 Pfizer BioNTech Vaccine Unknown 01/21/2021 Administered #1 04/17/20 #2 05/08/20 Influenza Unknown 11/09/2016 Administered Influenza Unknown 11/03/2019 Administered Influenza Unknown 11/24/2021 Administered Influenza Unknown 11/23/2022 Administered Pneumococcal Unknown 11/24/2016 Administered Social History Tobacco Use: Social History Observation [...] less (1 point) Points 2 Interpretation Negative Problems Problem Type SNOMED Code ICD Code Onset Dates Problem Status W/U Status Risk Notes Problem Acquired hallux valgus (86449641) Hallux valgus (acquired), left foot (M20.12) Active confirmed Problem Ulcer of toe (297161419) Non-pressure chronic ulcer of other part of left foot limited to breakdown of skin (L97.521) Active confirmed Problem Polyneuropathy due to type 2 diabetes mellitus (854091671) Type 2 diabetes mellitus with diabetic polyneuropathy (E11.42) Active confirmed Problem Acquired hallux valgus (33055775) Hallux valgus (acquired), right foot (M20.11) Active confirmed Problem Ulcer of toe (901606025) Non-pressure chronic ulcer of other part of left foot limited to breakdown of skin (L97.521) Active confirmed Problem Acquired hallux valgus (69687134) Hallux valgus (acquired), left foot (M20.12) Active confirmed Problem Acquired hallux valgus (99090088) Hallux valgus (acquired), right foot (M20.11) Active confirmed Problem Acquired hammer toe of right foot (3581310456340677) Other hammer toe(s) (acquired), right foot (M20.41) Active confirmed Problem Acquired hammer toe of left foot (5987532349203428) Other hammer toe(s) (acquired), left foot (M20.42) Active confirmed Problem Type II diabetes mellitus without complication (764795232) Type 2 diabetes mellitus without complications (E11.9) Active confirmed Problem 877157792 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) Active confirmed Problem 363452078 Pronation deformity of right foot (M21.6X1) Active confirmed Problem Acquired deformity of left foot (94677638539748898) PlantarFlexion of metatarsal of left foot (M21.6X2) Active confirmed Problem 56228525532760040 Skin ulcer of toe of left foot, limited to breakdown of skin (L97.521) Active confirmed Problem Skin ulcer of to e of right foot with fat layer exposed (L97.512) Active confirmed Problem Skin ulcer of to e of left foot with fat layer exposed (L97.522) Active confirmed Vital Signs Blood pressure diastolic 67 mm Hg 07/08/2023 Height 5ft 6in in 01/13/2024 Blood pressure systolic 116 mm Hg 07/08/2023 Weight 176 lbs 01/13/2024 BMI 28.4 kg/m2 01/13/2024 Procedures Procedure Date Ordered Date Performed Result Body Sit e 46454-MOKSYWF NAIL, 6 OR MORE 02/25/2023 N/A 33643-BSZNDQH NAIL, 6 OR MORE 05/03/2023 N/A 58682-NKLIEDF NAIL, 6 OR MORE 07/08/2023 N/A 54789-JXUCWTB NAIL, 6 OR MORE 09/09/2023 N/A 75349-AEKMXVU NAIL, 6 OR MORE 11/11/2023 N/A 49799-XWVB SKIN LESIONS, 2 TO 4 11/11/2023 N/A 13127-VDSGECB NAIL, 6 OR MORE 01/13/2024 N/A 21457-DUKC SKIN LESIONS, 2 TO 4 01/13/2024 N/A Encounters Encounter Location Date Provider Diagnosis [address] [address] 02/25/2023 Jennifer Black Tinea unguium B35.1 ; Pain in right toe(s) M79.674 ; Pain in left toe(s) M79.675 and Type 2 diabetes mellitus without complications E11.[address] [address] 05/03/2023 Jennifer Black Tinea unguium B35.1 ; Pain in right toe(s) M79.674 ; Pain in left toe(s) M79.675 and Type 2 diabetes mellitus without complications E11.[address] [address] 07/08/2023 Jennifer Black Tinea unguium B35.1 ; Pain in right toe(s) M79.674 ; Pain in left toe(s) M79.675 and Type 2 diabetes mellitus without complications E11.[address] [address] 09/09/2023 Jennifer Black Tinea unguium B35.1 ; [...] M25.571 and Bursitis of right foot M77.[address] [address] 11/11/2023 Jennifer Black Hallux valgus (acquired), right foot M20.11 ; Neuritis M79.2 ; Tinea unguium B35.1 ; Pain in right foot M79.671 ; Pain in right ankle and joints of right foot M25.571 and Type 2 diabetes mellitus with diabetic polyneuropathy E11.[address] [address] 01/13/2024 Jennifer Black Neuritis M79.2 ; Oth [...] Treatment Notes Treatment Clinical Notes Section Notes 02/25/2023 Tinea unguium (ICD-10 - B35.1) 02/25/2023 Pain in right toe(s) (ICD-10 - M79.674) 05/03/2023 Tinea unguium (ICD-10 - B35.1) 07/08/2023 Tinea unguium (ICD-10 - B35.1) 09/09/2023 Tinea unguium (ICD-10 - B35.1) 09/09/2023 Hallux valgus (acquired), right foot (ICD-10 - M20.11) 11/11/2023 Hallux valgus (acquired), right foot (ICD-10 - M20.11) 11/11/2023 Neuritis (ICD-10 - M79.2) 01/13/2024 Other hammer toe(s) (acquired), right foot (ICD-10 - M20.41) Patient Educated with: DIABETIC FOOT CARE INSTRUCTIONS. pdf (DIABETIC FOOT CARE INSTRUCTIONS. pdf) 01/13/2024 Neuritis (ICD-10 - M79.2) 01/13/2024 Hallux valgus (acquired), right foot (ICD-10 - M20.11) 11/11/2023 Tinea unguium (ICD-10 - B35.1) 07/08/2023 Pain in right toe(s) (ICD-10 - M79.674) 09/09/2023 Pain in right toe(s) (ICD-10 - M79.674) 05/03/2023 Pain in right toe(s) (ICD-10 - M79.674) 02/25/2023 Pain in left toe(s) (ICD-10 - M79.675) 07/08/2023 Pain in left toe(s) (ICD-10 - M79.675) 05/03/2023 Pain in left toe(s) (ICD-10 - M79.675) 02/25/2023 Type 2 diabetes mellitus without complications (ICD-10 - E11.9) 09/09/2023 Pain in left toe(s) (ICD-10 - M79.675) 11/11/2023 Pain in right foot (ICD-10 - M79.671) 01/13/2024 Tinea unguium (ICD-10 - B35.1) 01/13/2024 Pain in right foot (ICD-10 - M79.671) 11/11/2023 Pain in right ankle and joints of right foot (ICD-10 - M25.571) 09/09/2023 Type 2 diabetes mellitus without complications (ICD-10 - E11.9) 07/08/2023 Type 2 diabetes mellitus without complications (ICD-10 - E11.9) 05/03/2023 Type 2 diabetes mellitus without complications (ICD-10 - E11.9) 09/09/2023 Pain in left foot (ICD-10 - M79.672) 11/11/2023 Type 2 diabetes mellitus with diabetic polyneuropathy (ICD-10 - E11.42) 01/13/2024 Pain in right ankle and joints of right foot (ICD-10 - M25.571) 01/13/2024 Type 2 diabetes mellitus with diabetic polyneuropathy (ICD-10 - E11.42) 09/09/2023 Pain in left ankle and joints of left foot (ICD-10 - M25.572) 09/09/2023 Bursitis of left foot (ICD-10 - M77.52) 01/13/2024 Other hammer toe(s) (acquired), left foot (ICD-10 - M20.42) 09/09/2023 Hallux valgus (acquired), left foot (ICD-10 - M20.12) 09/09/2023 Pain in right foot (ICD-10 - M79.671) 09/09/2023 Pain in right ankle and joints of right foot (ICD-10 - M25.571) 09/09/2023 Bursitis of right foot (ICD-10 - M77.51) Plan Of Treatment Pending Test Test Name Order Date *Liver Function Test (LFT) 09/17/2016 56235-LECEZER NAIL, 6 OR MORE 09/17/2016 30875-EGGKCJY NAIL, 6 OR MORE 05/27/2017 05728-XUITLJB NAIL, 6 OR MORE 08/30/2017 56496-QHYSMPH NAIL, 6 OR MORE 11/24/2017 68645-HFBKDRC NAIL, 6 OR MORE 02/24/2018 00645-QSTIECB NAIL, 6 OR MORE 05/02/2018 86014-HIZPZWV NAIL, 6 OR MORE 07/14/2018 49486-NBTLELM NAIL, 6 OR MORE 10/03/2018 72012-PMXEMMT NAIL, 6 OR MORE 12/12/2018 41457-PNYWNZY NAIL, 6 OR MORE 04/17/2019 17434-QPJSPLT NAIL, 6 OR MORE 07/24/2019 19170-ZEXBULI NAIL, 6 OR MORE 09/25/2019 84790-XUOKMOI NAIL, 6 OR MORE 12/07/2019 50145-AXDVHSU NAIL, 6 OR MORE 06/18/2016 34148-ZJWRXEF NAIL, 6 OR MORE 02/26/2020 59005-QPJYKBV NAIL, 6 OR MORE 07/17/2020 00172-KIUKDTU NAIL, 6 OR MORE 09/23/2020 37763-MINCMET NAIL, 6 OR MORE 12/30/2020 64302-QLKVXTC NAIL, 6 OR MORE 04/21/2021 75364-WTNWPLM NAIL, 6 OR MORE 05/06/2020 05530-GOLLHKM NAIL, 6 OR MORE 07/14/2021 58481-QELIPRS NAIL, 6 OR MORE 12/22/2021 94308-RZBDGYA NAIL, 6 OR MORE 03/26/2022 16657-FUEKVXS NAIL, 6 OR MORE 06/15/2022 33343-SOFBHMS NAIL, 6 OR MORE 08/17/2022 01506-XLPOXZF NAIL, 6 OR MORE 10/19/2022 42845-CONFLZA NAIL, 6 OR MORE 12/21/2022 80677-RHTPGYD NAIL, 6 OR MORE 02/25/2023 13549-NWSWLLB NAIL, 6 OR MORE 05/03/2023 34081-HZCOLPK NAIL, 6 OR MORE 07/08/2023 66967-GPLMVVP NAIL, 6 OR MORE 09/09/2023 64490-NMXIHTE NAIL, 6 OR MORE 10/13/2021 58106-AQCXSSM NAIL, 6 OR MORE 11/11/2023 62009-ENVTRFR NAIL, 6 OR MORE 01/13/2024 37948-Mgpboozj Plate 10/19/2022 86100-Sudwadwl Plate 07/17/2020 51799-Dwzcqlyo Plate 07/14/2021 38512-Awktqwvm Plate 02/26/2020 17093-Xblnwxoq Plate 11/14/2014 27520-Ncadhsaf Plate 05/28/2016 15159-JGC 01/24/2018 08982- Debride <25 sq cm 06/18/2016 42903- Debride <25 sq cm 12/05/2014 80766- Debride <25 sq cm 03/14/2020 36253- Debride <25 sq cm 02/24/2018 61944- Debride <25 sq cm 11/02/2022 62182- Debride <25 sq cm 10/30/2021 74646-UOWRPAM SKIN/TISSUE 02/07/2018 28951 I&D ABSCESS- SIMPLE,SINGLE 022 96407-PDAI SKIN LESIONS, 2 TO 4 01/13/20 24 39538-NOZM SKIN LESIONS, 2 TO 4 11/11/19 Next Appt Details Provider Name:Jennifer Agarwal , 03/16/2024 08:15:00 AM, [address] [place] [address], [phone], Provider Name:Jennifer Agarwal , 05/25/2024 08:15:00 AM, [address] [place] [address], [phone], Insurance Providers Payer Name Payer Address Payer Phone Subscriber Number Group Number Insured Name Patient Relationship to Insured Coverage Start Date Coverage End Date Medicare [employer] [address] [place] [phone] [id number] Starla Oliva Self - patient is the insured [facility] [address] [place] [address] [phone] [id number] Starla Oliva Self - patient is the insured Medical (General) History Medical History History ICD Code Angina Hyperlipidemia Diverticulosis Heart disease Hypertension Pre-iabetic Cancer Concussion Diverticulitis Surgical History Surgery Date(Month/Year) heart surgery unspecified 04/2013 stent insertion 04/2010 ablation 04/2013 Lupereapeater Placement - Cardiac proced ure 2018 Uterus Bx 04/2018 right artery stent 01/31/2019 hysterectomy- Cancer cells 04/11/21 D and C 01/22 Hospitalization History Reason Date(Month/Year) Gissel Arellano- Diverticulosis [facility]- concussion Gissel Arellano- MRI 04/2020 Visit to special education teaching assistant for yael llanos t - measure heart beats 06/2017
--- OUTSIDE RECORDS SUMMARY | 2024-02-14 06:46 | XMS_ITS ---
Author Organization [facility] Address [address] [address] Care Team Providers Care Senior Manager Name Role Phone Michael Orellana MD Primary Care Provider Unavaila ble Black, Jennifer Unavailable [phone] Allergies Allergen (clinical drug ingredient) Drug/Non Drug [...] Drug Allergy A ctive REASON FOR VISIT Painful nail(s) aggrevated by shoes causing difficulty standing/walking, At Risk Footcare, Foot pain Medications Medication SIG (Take, Route, Frequency, Duration) Notes Start Date End Date Status Isosorbide Mononitrate ER 30 MG 1 tablet Orally Once a day Not-Taking Triamterene-HCTZ 37.5-25 MG 1 tablet in the morning Orally Once a day Not-Taking Ciclopirox Olamine 0.77% external Apply to effected areas twice a day for 30 days 11/14/2014 Not-Taking LamISIL 250 MG 1 tablet Orally Once a day for 7 days then stop for 3 weeks then repeat cycle for 12 months for 360 days finished 07/201710/05/2016 Not-Taking amLODIPine Besylate 5 MG 1 tablet Orally Once a day Not-Taking oxyBUTYnin Not-Takin g Night Splint AFO - L1930 as directed 05/28/2016 Not-Taking Triamterene Not-Taki ng Cipro 500 MG 1 tablet Orally every 12 hrs for 10 day(s) 01/24/2018 Not-Taking Doxycycline Hyclate 100 MG 1 tablet Orally Once a day for 10 day(s) 03/07/2020 Not-Taking zzzCompression Stockings 20-30mm Hg . . . for . Not-Taking Hydrocortisone 1 % 1 application to affected area Externally Twice a day to affected areas on feet for 30 days Not-Taking Aspirin Adult Low Strength 81 MG 1 tablet Orally Once a day Not-Taking Clopidogrel Bisulfate 75 MG Orally Not-Taking metFORMIN HCl 500 MG 1 tablet with a meal Orally Once a day for 30 day(s) Not-Taking Solifenacin Succinate 5 MG 1 tablet Orally Once a day for 30 day(s) Not-Taking Losartan Potassium-HCTZ 50-12.5 MG 1 tablet Orally Once a day Active Vitamin D Active dilTIAZem HCl Active Metoprolol Tartrate 50 MG 1 tablet Orall y Twice a day Active Gabapentin Active Myrbetriq 25 MG as directed Orally Active Atorvastatin Calcium 80 MG 1 tablet Orally Once a day Active Baby Aspirin Active Magnesium 200mg once a day Active hydroCHLOROthiazide 25 MG 1 tablet in th e morning Orally Once a day Active Nitrofurantoin Activ e Social History Tobacco Use: Social History Observation Description Date Details (start date - stop date) Never Smoker NA - NA Tobacco Use/Smoking Question Answer Notes Are you a: nonsmoker Additional Findings: Tobacco Non-User Current no n-smoker Tobacco use other than smoking: Question Answer Notes Are you an other tobacco user? No Problems Problem Type SNOMED Code ICD Code Onset Dates Problem Status W/U Status Risk Notes Problem Polyneuropathy due to type 2 diabetes mellitus (207888516) Type 2 diabetes mellitus with diabetic polyneuropathy (E11.42) Active confirmed Vital Signs Height 5ft6in in 11/11/2023 Weight 175 lbs 11/11/2023 BMI 28.24 kg/m2 11/11/2023 Procedures Procedure Date Ordered Date Performed Result Body Sit e 64674-ODPRITN NAIL, 6 OR MORE 11/11/2023 N/A 18944-NFGO SKIN LESIONS, 2 TO 4 11/11/2023 N/A Encounters Encounter Location Date Provider Diagnosis [facility] [place] [address] 11/11/2023 Jennifer Agarwal Hallux valgus (acquired), right foot M20.11 ; Neuritis M79.2 ; Tinea unguium B35.1 ; Pain in right foot M79.671 ; Pain in right ankle and joints of right foot M25.571 and Type 2 diabetes mellitus with diabetic polyneuropathy E11.42 Assessments Encounter Date Diagnosis (ICD Code) Assessment Notes Treatment Notes Treatment Clinical Notes Section Notes 11/11/2023 Hallux valgus (acquired), right foot (ICD-10 - M20.11) 11/11/2023 Neuritis (ICD-10 - M79.2) 11/11/2023 Tinea unguium (ICD-10 - B35.1) 11/11/2023 Pain in right foot (ICD-10 - M79.671) 11/11/2023 Pain in right ankle and joints of right foot (ICD-10 - M25.571) 11/11/2023 Type 2 diabetes mellitus with diabetic polyneuropathy (ICD-10 - E11.42) Plan Of Treatment Pending Test Test Name Order Date 06325-SVAEGSS NAIL, 6 OR MORE 11/11/2023 90806-VPDN SKIN LESIONS, 2 TO 4 11/11/19 24 Next Appt Details Follow Up: prn, Reason: Provider Name:Jennifer Agarwal , 03/16/2024 08:15:00 AM, [address] [place] [address], [phone], Provider Name:Jennifer Agarwal , 05/25/2024 08:15:00 AM, [address] [place] [address], [phone], Procedure Notes * Category Sub-Category Detail Notes Debride Nail 6-10 Nail debridement Performance o f this nail treatment by a nonprofessional would put this patients foot and overall health at risk. Therefore, nail debridement was performed extensively to reduce/remove overall nail length, girth, thickness, subungual debris, and necrotic tissue, by manual and/or electrical means through the use of a nail nipper and/or dremel-type roll contour grinder, to a more viable healthy nail plate or bed tissue 6-10. Silver nitrate used for any petechial bleeding as necessary. Definitive antifungal treatment options have been reviewed and discussed with the patient. The patient chooses, no pharmaceutical tx - 03560 Keratoma Treatment Parring or Cutting o f Benign Hyperkeratotic Lesion(s) (-56) 2-4 Lesions - The Benign hyperkeratotic lesions, as described above were pared, and/or cut utilizing a sterile 15 blade, tissue nippers, and/or dremel - 08251 Progress Notes * Starla OLIVADOB: (73 yo F)Acc No.[id number]:11/11/2023 Progress Note Patient:?Pj, Jacaidan carrasco Provider:?Jennifer Agarwal DPM :1950???Age:73 Y???Sex:Female D ate:11/11/2023 Address:[address] [place] [phone] Pcp:Michael Orellana MD Subjective: * Chief Complaints: * ???Painful nail(s) aggrevate d by shoes causing difficulty standing/walkingAt Risk FootcareFoot pain * HPI: ???Painful Nails:?Pt States Last PCP Visit:?Date:?07/29/2023 ???Foot Pain:?Location:?Inside, Great toe joint, , RIGHT.?Duration:?1 month.?Course:?worse- right.?Aggravated:?any pressure.?Treatments:?rest/alter normal daily activity.? * ROS:?General/Constitutional:?Nausea?denies.?Vomiting?denies.?Hunger Thirst?denies.?Loss appetite?denies.?Chills?denies.?Fatigue?denies.?Fever?denies.?Night Sweats?denies.?Unexplained weight loss?denies.?Unexplained weight gain?denies.?HEENTM:?Dentures?denies.?Dizziness?denies.?Glasses/contacts?admits.?Retinopathy?de nies.?Blurred/double vision?denies.?TMJ?denies.?Discharge/drainage?denies.?Implants?denies.?Sore throat?denies.?Dental implants?denies.?Hard of hearing ?denies.?Difficulty chewing/swallowing/speaking?denies.?Nose bleeds?denies.?Sore mouth?denies.?Respiratory:?On Oxygen?denies.?Pneumonia/pleurisy?denies.?Bronchitis?denies.?Emphysema?denies.?C oughing?denies.?Cough blood?denies.?Shortness of breath?denies.?Wheezing?denies.?Cardiovascular:?Pacemaker?denies.?MVP?denies.?WPW?denies.?CHF?denies.?Heart attack?denies.?Septal defect?denies.?Rapid beat?denies.?Chest pain ?denies.?Atrial Fib.?denies.?Murmur/Palpitations?denies.?Gastrointestinal:?Hemorrhoids?denies.?Stomach/Abdominal pain?denies.?Dark blood stool?denies.?Irritable bowel ?denies.?Constipation?denies.?Diarrhea?denies.?Hematology:?Swelling?denies.?Clots?denies.?Varicose Veins?denies.?Bruising?denies.?Bleeding problem?denies.?Genitourinary:?Blood urine?denies.?Frequent/Painfu/urination/bladder control?denies.?Kidney stones?denies.?Infection (UTI)?denies.?Nephropathy?denies.?sex trans dis (STD)?denies.?Prostate?denies.?Musculoskeletal:?Hammertoes?admits.?Bunions?admits.?Back Pain?admits.?Muscle Cramps/ Resting?denies.?Muscle cramps / walking?denies.?Generalized aches and pains?denies.?Weakness?denies.?Integ.:?Noyola?denies.?Scars?denies.?Corns/calluses?admits.?Ingrown nails?admits.?Painful nails?admits.?Open Sores?denies.?Rashes?admits.?Neurologic:?Difficulty sleeping?denies.?Brain disorder?denies.?Numbness?denies.?Balance trouble?denies.?Confusion?denies.?Fainting/blackouts?denies.?Tingling?denies.?Tr emors?denies.? * Medical History:? * Surgical History:?heart surg [place] unspecified 04/2013stent insertion blation 04/2013Lupereapeater Placement - Cardiac procedure 2017Uterus Bx 04/2018right artery stent 01/31/2019hysterectomy- Cancer cells 04/11/21D and C 03/15 * Hospitalization/Major Diagno stic Procedure:?Visit to stable helper for lupur placement - measure heart beats 06/2017Cooley Adan- MRI [facility] [place]- concussion Chauhan Adan- Diverticulosis * Family History:?Mother: dece ased, diagnosed with Unspecified cerebral artery occlusion with cerebral infarction.?Father: , diagnosed with Other malignant neoplasm of unspecified site.? * Social History:?Tobacco Use:?Tobacco Use/Smoking?Are you a:?nonsmoker ?Additional Findings: Tobacco Non-User?Current non-smoker ?Tobacco use other than smoking?Are you an other tobacco user??No ???Miscellaneous:?Caffeine: yes, 1-2 cups per day. ?Children: yes, 2. ?Exercise: yes, walking, occasional. ?Marital status: . ?Occupation: retired, [employer]. * Medications:?TakingNitrofura ntoin hydroCHLOROthiazide 25 MG Tablet [...] Twice a daydilTIAZem HCl Vitamin D Taking Nitrofurantoin Taking hydroCHLOROthiazide [...] repeat cycle for 12 months, Notes: finished 07/2017Not- Taking/PRN Ciclopirox Olamine 0.77% Cream external Apply to [...] rashSulfa AntibioticsAdhesivePenicillin: rashyes[Allergies Verified] Objective: * Vitals:?Ht: 5ft6in, Wt:175, BMI:28.24, Shoe size: 8, BS: not taken, Ht-cm: 167.64 cm, Wt-k.38 kg. * ???Past Orders: ???Lab:HEMOGLOBIN A1C (GLYCO HEMOGLOBIN) (Order Date - 11/22/2022) (Collection Date - 11/22/2022) ? Value Reference Range ?HEMOGLOBIN A1C (HH) 5.9 * Examination: ???Ophthalmology Referral: ?DIABETES EYE EXAM?Nails: ?NAILS are:? Elongated, overgrown, dystrophic, lytic, greater than 3mm thick, discolored and friable with crumbly malodorous subungual debris, with dull to no pain on palpation due to neuropathy, 1-5 B/L.?Orthopedic: ?BUNION:? Medially prominent 1st MPJ, (+) Pain on palpation, inflammation present medially, Lateral tracking 1st MPJ incompletely reducible, Right, inflammation present, erythema at exostosis.?Neurological: ?SENSORY:?Neurological exam demonstrates , reduced light touch sensation , reduced sharp/dull pin prick discrimination , 5.07 monofilament test performed at plantar aspects of 5 varied sites per foot shows sensation , reduced , at Forefoot , Pt relates , burning , numbness.?Vascular: ?DP PULSES(B):?, 2/4, B/L.?PT PULSES(B):?, 2/4, B/L.?CAPILLARY FILL TIME:?immediate, all digits, B/L.?TROPHIC CONDITION-TEXTURE/ELASTICITY/TURGOR/HAIR GROWTH(B):?normal, B/L.?TEMPERTURE GRADIENT(C):?normal, warm to cool, proximal to distal, B/L, B/L.?Dermatologic: ?SKIN FINDINGS:??Skin exam reveals Keratotic lesion(s) located at, IPJ , TA , T5 , SUB MTH (s) , 1 , B/L.? Assessment: * Assessment: 1.?Hallux valgus (acquired), right foot - M20.11?2.?Neuritis - M79.2 (Primary)?3.?Tinea unguium - B35.1?4.?Pain in right foot - M79.671?5.?Pain in right ankle and joints of right foot - M25.571?6.?Type 2 diabetes mellitus with diabetic polyneuropathy - E11.42? Plan: * Treatment: 2.?Type 2 diabetes mellitus with diabetic polyneuropathy?Procedure: 59331-DFPL SKIN LESIONS, 2 TO 4 * Procedures:?Debride Nail 6-10:?Nail debridement?Performance of this nail treatment by a nonprofessional would put this patients foot and overall health at risk. Therefore, nail debridement was performed extensively to reduce/remove overall nail length, girth, thickness, subungual debris, and necrotic tissue, by manual and/or electrical means through the use of a nail nipper and/or dremel-type roll contour grinder, to a more viable healthy nail plate or bed tissue 6-10. Silver nitrate used for any petechial bleeding as necessary. Definitive antifungal treatment options have been reviewed and discussed with the patient. The patient chooses, no pharmaceutical tx - 31716.?Keratoma Treatment:?Parring or Cutting of Benign Hyperkeratotic Lesion(s)?(-56) 2-4 Lesions - The Benign hyperkeratotic lesions, as described above were pared, and/or cut utilizing a sterile 15 blade, tissue nippers, and/or dremel - 54886.? * Procedure Codes:?39901 DEBRI DE NAIL, 6 OR MORE, Modifiers: XS 58110 TRIM SKIN LESIONS, 2 TO 4, Modifiers: [...] encouraged the patient to call the office.?Digital Treatment:?Recomm, rest, ice, proper shoegear, padding, orthotics, anti-inflammatories or tylenol as tolerated, topical analgesics, cortisone injections.Recomm breaking in period with any new shoes. Present New Balance sneaker have a wide and high toe box which should help decrease pain with the joint.?Neuritis/Neuropathy:?The patient was counseled on the diagnosis, possible etiologies (including mechanical stress, injury, entrapment, chemotherapy, diabetes, vertebral disk herniation if hx), treatment options, and importance for adherence to recommendations in order to address the patients Neuritis/Neuropathy. The advantages and disadvantages re: Accomidative mechanical support/offloading, Topical vs PO analgesics including aspercream/Voltaren gel/Lidoderm patches/Neurontin/Lyrica along with their potential side effects were discussed with the patient to their satisfaction. Also discussed the use of therapeutic injectable cortisone if needed. Surgical treatment, if considered an option, was discussed as well. If surgery is warranted, we discussed the potential successful outcomes as well as the possible complications such as failure, painful scar, permanent tingling/numbness/neuralgea/or intractable pain. Patient questions re: medication use, dosage, and possible side effects and drug interactions were reviewed and the answers to each understood. If the condition worsens, the patient was instructed to contact the office for an appointment. The patient verbally confirmed a full understanding of the above, Recommended Topical analgesics including aspercream/Voltaren gel/Lidoderm patches, tight glycemic control.? * Follow Up:?prn * Images: * Sign off status: Completed true * Provider:?Jennifer Agarwal DPM Date:?2023 Generated for Gian domingo/Jacinda/eTransmitting on:?2024 06:46 AM EST History and Physical Notes * HPI (History of Present Illness) Category Sub-Category Detail Notes Category Not es Painful Nails Pt States Last PCP Visit: Date:: 07/29/2023 Foot Pain Location: Inside, Great to e joint, , RIGHT Duration: 1 month Course: worse- right Aggravated: any pressure Treatments: rest/alter normal da aye activity Examination Category Sub-Category Detail Notes Category Not es Neurological SENSORY: Neurological exa m demonstrates , reduced light touch sensation , reduced sharp/dull pin prick discrimination , 5.07 monofilament test performed at plantar aspects of 5 varied sites per foot shows sensation , reduced , at Forefoot , Pt relates , burning , numbness Dermatologic SKIN FINDINGS: Skin exam reveal s Keratotic lesion(s) located at, IPJ , TA , T5 , SUB MTH (s) , 1 , B/L Orthopedic BUNION: Medially promine nt 1st MPJ, (+) Pain on palpation, inflammation present medially, Lateral tracking 1st MPJ incompletely reducible, Right, inflammation present, erythema at exostosis Ophthalmology Referral DIABETES EYE EXAM Diabeti c Retinopathy Screening:: Yes Findings of Diabetic Eye [...] no pain on palpation due to neuropathy, 1-5 B/L
[2024-03-31 11:46] VITALS: BMI 29.4
--- NOTE | 2024-04-03 08:59 | HO.ANESPROP2 ---
Documented by User: Ellen Cuellar NP 04/03/24 09:02 HPI - Anesthesia Eval Consult details Narrative: 74yo F for Upper Endoscopy Follows [facility] for CAD/TX, afib s/p rfa. Stable at 2023 office visit with 1 year routine f/u [facility] Active Problems Active Problems: All Active Problems Dysuria (Acute) Foot injury (Acute) Past Medical History Medical History (Updated 03/31/24 @ 11:32 by Tangela Hubbard RN) Diverticulitis Foot injury Cervical disc disorder History of cancer of uterine body Diabetes History of angina Arrhythmia PVD (peripheral vascular disease) Myocardial infarction ACS (acute coronary syndrome) CAD (coronary artery disease) ZENON (obstructive sleep apnea) Mixed hyperlipidemia HTN (hypertension) PAF (paroxysmal atrial fibrillation) Family History Family history of problems with anesthesia: No Surgical History Surgical History (Updated 03/31/24 @ 11:33 by Tangela Hubbard RN) History of loop recorder History of dilatation and curettage History of cataract surgery H/O heart artery stent History of cardiac radiofrequency ablation (RFA) Hx of colonoscopy H/O: hysterectomy History of Problems with Anesthesia: No Social History Social History Patient Tobacco Use Status: Never used Tobacco Have you been hit, kicked, punched, or otherwise hurt by someone within the past year? If so, by whom?: No Are you DNR?: Yes Advance Directives: No Advance Directives Information Provided: Yes Meds Allergies Allergy/AdvReac Type Severity Reaction Status Date / Time erythromycin base Allergy Unknown HIVES Verified 02/11/22 13:31 [ERYTHROMYCIN BASE] Penicillins [PENICILLINS] Allergy Unknown HIVES Verified 02/11/22 13:31 Sulfa (Sulfonamide Allergy Unknown unknowmn Verified 02/11/22 13:31 Antibiotics) sulfamethoxazole Allergy Unknown HIVES Verified 02/11/22 13:31 [From BACTRIM] tetracycline [TETRACYCLINE] Allergy Unknown HIVES Verified 02/11/22 13:31 trimethoprim [From BACTRIM] Allergy Unknown HIVES Verified 02/11/22 13:31 MOST ANTIBIOTIS Allergy Unknown HIVES Uncoded 12/22/19 09:46 Home Medications ?Medication ?Instructions ?Recorded ?Confirmed ?Last Taken ?Type atorvastatin 80 mg tablet 80 mg PO DAILY 10/03/31/24 02/09/22 History diltiazem HCl 120 mg 120 mg PO DAILY 12/22/19 03/31/24 04/04/24 History capsule,extended release 24 hr valsartan 160 mg tablet 160 mg PO DAILY 12/22/19 03/31/24 02/10/22 History aspirin 81 mg tablet,delayed 81 mg PO DAILY 02/11/22 03/31/24 04/03/24 History release nitrofurantoin macrocrystal 100 mg 1 cap PO DAILY 02/11/22 03/31/24 02/10/22 History capsule cholecalciferol (vitamin D3) 50 50 mcg PO DAILY 03/31/24 03/31/24 Unknown History mcg (2,000 unit) capsule (Vitamin D3) gabapentin 100 mg capsule 100 mg PO DAILY 03/31/24 03/31/24 04/04/24 History hydrochlorothiazide 12.5 mg tablet 12.5 mg DAILY 03/31/24 03/31/24 Unknown History magnesium oxide 400 mg PO DAILY 03/31/24 03/31/24 Unknown History metoprolol succinate 25 mg 25 mg PO DAILY 03/31/24 03/31/24 04/04/24 History tablet,extended release 24 hr metoprolol succinate 50 mg capsule 50 mg PO DAILY 03/31/24 03/31/24 Unknown History sprinkle, ext. release 24 hr mirabegron 50 mg tablet,extended 50 mg PO DAILY 03/31/24 03/31/24 Unknown History release 24 hr (Myrbetriq) Exam Height,Weight and Vital Signs: Height 5 ft 6 in Weight 82.554 kg Assessment and Plan Assessment Anesthesia Assessment: Chart Reviewed Final Anesthetic Review Family History of Problems with Anesthesia: No History of Problems with Anesthesia: No Documented by User: Jose Joseph MD 04/04/24 09:51 [facility] Past Medical History Medical History (Updated 03/31/24 @ 11:32 by Tangela Hubbard RN) Diverticulitis Foot injury Cervical disc disorder History of cancer of uterine body Diabetes History of angina Arrhythmia PVD (peripheral vascular disease) Myocardial infarction ACS (acute coronary syndrome) CAD (coronary artery disease) ZENON (obstructive sleep apnea) Mixed hyperlipidemia HTN (hypertension) PAF (paroxysmal atrial fibrillation) Surgical History Surgical History (Updated 03/31/24 @ 11:33 by Tangela Hubbard RN) History of loop recorder History of dilatation and curettage History of cataract surgery H/O heart artery stent History of cardiac radiofrequency ablation (RFA) Hx of colonoscopy H/O: hysterectomy Social History Social History Patient Tobacco Use Status: Never used Tobacco Have you been hit, kicked, punched, or otherwise hurt by someone within the past year? If so, by whom?: No Are you DNR?: Yes Advance Directives: No Advance Directives Information Provided: Yes Meds Allergies Allergy/AdvReac Type Severity Reaction Status Date / Time erythromycin base Allergy Unknown HIVES Verified 02/11/22 13:31 [ERYTHROMYCIN BASE] Penicillins [PENICILLINS] Allergy Unknown HIVES Verified 02/11/22 13:31 Sulfa (Sulfonamide Allergy Unknown unknowmn Verified 02/11/22 13:31 Antibiotics) sulfamethoxazole Allergy Unknown HIVES Verified 02/11/22 13:31 [From BACTRIM] tetracycline [TETRACYCLINE] Allergy Unknown HIVES Verified 02/11/22 13:31 trimethoprim [From BACTRIM] Allergy Unknown HIVES Verified 02/11/22 13:31 MOST ANTIBIOTIS Allergy Unknown HIVES Uncoded 12/22/19 09:46 Home Medications ?Medication ?Instructions ?Recorded ?Confirmed ?Last Taken ?Type atorvastatin 80 mg tablet 80 mg PO DAILY 12/22/19 03/31/24 02/09/22 History diltiazem HCl 120 mg 120 mg PO DAILY 12/22/19 03/31/24 04/04/24 History capsule,extended release 24 hr valsartan 160 mg tablet 160 mg PO DAILY 12/22/19 03/31/24 02/10/22 History aspirin 81 mg tablet,delayed 81 mg PO DAILY 02/11/22 03/31/24 04/03/24 History release nitrofurantoin macrocrystal 100 mg 1 cap PO DAILY 02/11/22 03/31/2402/10/22 History capsule cholecalciferol (vitamin D3) 50 50 mcg PO DAILY 03/31/24 03/31/24 Unknown History mcg (2,000 unit) capsule (Vitamin D3) gabapentin 100 mg capsule 100 mg PO DAILY 03/31/24 03/31/24 04/04/24 History hydrochlorothiazide 12.5 mg tablet 12.5 mg DAILY 03/31/24 03/31/24 Unknown History magnesium oxide 400 mg PO DAILY 03/31/24 03/31/24 Unknown History metoprolol succinate 25 mg 25 mg PO DAILY 03/31/24 03/31/24 04/04/24 History tablet,extended release 24 hr metoprolol succinate 50 mg capsule 50 mg PO DAILY 03/31/24 03/31/24 Unknown History sprinkle, ext. release 24 hr mirabegron 50 mg tablet,extended 50 mg PO DAILY 03/31/24 03/31/24 Unknown History release 24 hr (Myrbetriq) Exam Airway Mallampati Class: II TM Dist: >3cm Loose/Missing/Broken Teeth: Yes Assessment and Plan Assessment Anesthesia Assessment: Anesthesia Plan Discussed Final Anesthetic Review NPO: Yes ASA Class: III Final Preanesthetic Review: No Changes in Pt Med Stat, Meds/Allgs Chart Reviewed, Consent Obtained/Reviewed, Anes Risks/Benef Reviewed and DNR Form (If Appl.) Patient Risk: Intermediate Procedure Risk: Low Anesthetic Plan Anesthetic Plan: MAC: Disposition: Standard PACU
[2024-04-04 07:47] VITALS: BP 135/55; PULSE 55; RESP 16; TEMP 36.4; O2SAT 97; BMI 29.7
[2024-04-04] MEDS: Lactated Ringers 1,000 ML 100 ML IVCONT (07:52)
--- NOTE | 2024-04-04 08:08 | MHC.SHP ---
Pre-Procedural Eval Section A - 24 Hr Update-Section A only Date of Service: 04/04/24 Section B - Complete if H&P > 30 days Chief Complaint: Abnormal findings on diagnostic imaging of other p Details of Present Illness: see H&P no changes Relevant Family History (Specify if Yes): No Relevant Social History: None Present Medications: see Short Stay Collaborative assessment Medical History: No relevant PMH History of Previous Operations: No relevant previous surgery Allergies: Allergies Allergy/AdvReac Type Severity Reaction Status Date / Time erythromycin base Allergy Unknown HIVES Verified 02/11/22 13:31 [ERYTHROMYCIN BASE] Penicillins [PENICILLINS] Allergy Unknown HIVES Verified 02/11/22 13:31 Sulfa (Sulfonamide Allergy Unknown unknowmn Verified 02/11/22 13:31 Antibiotics) sulfamethoxazole Allergy Unknown HIVES Verified 02/11/22 13:31 [From BACTRIM] tetracycline [TETRACYCLINE] Allergy Unknown HIVES Verified 02/11/22 13:31 trimethoprim [From BACTRIM] Allergy Unknown HIVES Verified 02/11/22 13:31 MOST ANTIBIOTIS Allergy Unknown HIVES Uncoded 12/22/19 09:46 Review of Systems Sugical H&P ROS: Negative: Constitution, Cardiovascular, Respiratory, Neurological, Psychiatric, Hem-Onc, Allergic/Immunologic, Gastrointestinal, Genitourinary, Musculoskeletal, Integumentary, Endocrine and Eyes/Ears/Nose/Throat Exam Surgical H&P Exam: Normal: HEENT, Normal: Heart, Normal: Lungs, Normal: Extremities, Normal: Abdomen, Normal: Skin and Normal: Neurological Plan Diagnosis/Plan: Unchanged I have reviewed the history and physical and performed a pertinent physical examination on my patient. No changes have occurred unless specified. Time Spent With Patient Time: Total time managing care of this patient today ____ minutes.
[2024-04-04 08:40] VITALS: BP 92/42; PULSE 55; RESP 16; TEMP 36.1; O2SAT 96
[2024-04-04 08:57] VITALS: BP 117/54; PULSE 58; RESP 18; TEMP 36.6; O2SAT 95
--- NOTE | 2024-04-04 09:05 | OP_ITS ---
DATE OF SERVICE: 04/04/2024 SURGEON: Carroll Aquino MD PREOPERATIVE DIAGNOSIS: POSTOPERATIVE DIAGNOSIS: PROCEDURE PERFORMED: Upper endoscopy with biopsy Indications: Abnormal upper GI series. ESTIMATED BLOOD LOSS: COMPLICATIONS: ANESTHESIA: Monitored anesthesia care. ASSISTANTS: SPECIMENS: DESCRIPTION OF PROCEDURE: History and physical performed. The risks and benefits of the procedure explained to the patient. Informed consent was obtained. The patient was placed in the left lateral decubitus position. The Olympus video gastroscope was introduced into the esophagus, stomach, and duodenum. Examination was performed. The scope was removed. She tolerated the procedure well and was taken to recovery in stable condition. FINDINGS: 1. Esophagus: The esophagus was normal. There was no evidence of esophagitis. 2. Stomach: The stomach was normal. There was no evidence of abnormalities involving the mucosa. Biopsies were obtained from the antrum, body and fundus. 3. Duodenum: The bulb and second portion were normal. IMPRESSION: Normal upper endoscopy. RECOMMENDATION: Follow up the biopsy results. MD NORA Maradiaga/SARAL / [id number] MTDD
== END 2024-04-04 09:15 | disposition home or self-care (01) ==
PROVIDERS: PCP Internal Medicine; Visit Provider Internal Medicine Gastroenterology
PROC: 0DJ08ZZ Inspection of Upper Intestinal Tract, Via Natural or Artificial Opening Endoscopic (ICD-10-PCS; CPT 43235; principal; 2024-04-04 08:10)
DX: R93.3 Abnormal findings on diagnostic imaging of other parts of digestive tract (principal); K62.5 Hemorrhage of anus and rectum; E11.9 Type 2 diabetes mellitus without complications; I10 Essential (primary) hypertension; E78.2 Mixed hyperlipidemia; K76.0 Fatty (change of) liver, not elsewhere classified; I25.2 Old myocardial infarction; G47.33 Obstructive sleep apnea (adult) (pediatric); I48.0 Paroxysmal atrial fibrillation; Z79.02 Long term (current) use of antithrombotics/antiplatelets; Z79.899 Other long term (current) drug therapy; Z79.82 Long term (current) use of aspirin
CPT/HCPCS: 43239; 88305; 88313; 88342; J2003; J2704

== ENCOUNTER 2025-01-12 08:56 | Outpatient (REF) | payer MEDICARE, SELFPAY ==
--- OUTSIDE RECORDS SUMMARY | 2024-03-16 03:15 | XMS_ITS ---
Author Organization [facility] Address [address] [place] [phone] Care Team Providers Care Film Flat Inspector Name Role Phone Michael Orellana MD Primary Care Provider Unavaila Jennifer Mejia [phone] Encounters Encounter Location Date Provider Diagnosis [address] [address] 03/16/2024 Jennifer Agarwal Plan Of Treatment Next Appt Details Provider Name:Jennifer A Stefano , 03/05/2025 02:30:00 PM, [address] [place] [address], [phone], Provider Name:Jennifer A Stefano , 05/14/2025 08:30:00 AM, [address] [place] [address], [phone], Progress Notes * PJ StarlaDOB: (74 yo F)Acc No.[id number]:03/16/2024 Progress Note Patient: Roger TYLERqueline Provider: Maria C Agarwal DPM :1950 A ge:74 Y S ex:Female Date:03/16/2024 Address:[address] [place], [place] [address]J[phone] Pcp:Michael Orellana MD Subjective: * Chief Complaints: * * Medical History: Objective: * Vitals: Assessment: Plan: * Treatment: * Images: * The named appointment provid er may or may not be the originator of this progress note, and it is not deemed complete until electronically signed by the appointment provider. Sign off status: Pending * Provider: Maria C Agarwal DPM Date: 0 03/16/2024 Generated for Gian domingo/Jacinda/Joycelyn on: 03/14/2024 09:10 AM EST
--- OUTSIDE RECORDS SUMMARY | 2024-04-04 03:10 | XMS_ITS ---
Author Organization [facility] Address [address] [place] [address] Care Team Providers Care Electronics Inspector Name Role Phone Michael Orellana MD Primary Care Provider Carroll Salazar Jr [phone] REASON FOR VISIT abn ct scan stomach Encounters Encounter Location Date Provider Diagnosis [facility] [address] [place] [id number] 04/04/2024 Carroll Aquino Jr Abnormal UGI series R93.3 Assessments Encounter Date Diagnosis (ICD Code) Assessment Notes Treatment Notes Treatment Clinical Notes Section Notes 04/04/2024 Abnormal UGI series (ICD-10 - R93.3) Plan Of Treatment No Information Progress Notes * NIRAJ BLACK [birth year]OB:1 04/17/1949 (74 yo F)Acc No.[id number]:04/04/2024 EGD/MAC Patient: Geraldine NIRAJ LEONARD Provider: Matthew Aquino MD :1950 A ge:74 Y S ex:Female Date:04/04/2024 Address:[address] [place], [place] [id number] Pcp:Michael Orellana MD Subjective: * Chief Complaints: * A bn ct scan stomach Assessment: * Assessment: 1. A bnormal UGI series - R93.3 (Primary) Plan: * Procedure Codes: 4 3239 UPPER GI ENDOSCOPY, BIOPSY Billing Information: * Procedure Codes: 06036 UPPER GI ENDOSCOPY, BIOPSY. * The named appointment provid er may or may not be the originator of this progress note, and it is not deemed complete until electronically signed by the appointment provider. Sign off status: Pending * Provider: Matthew Aquino MD Date: 0 04/04/2024 Generated for Gian domingo/Jacinda/Gingeritting on: 1 03/14/2024 09:10 AM EST
--- OUTSIDE RECORDS SUMMARY | 2024-05-25 03:15 | XMS_ITS ---
Author Organization [facility] Address [address] [place] [address] Care Team Providers Care Escrow Manager Name Role Phone Michael Orellana MD Primary Care Provider Unavaila Jennifer Mejia [phone] Encounters Encounter Location Date Provider Diagnosis [address] [address] 05/25/2024 Jennifer Agarwal Plan Of Treatment Next Appt Details Provider Name:Jennifer A Stefano , 03/05/2025 02:30:00 PM, [address] [place] [address], [phone], Provider Name:Jennifer A Stefano , 05/14/2025 08:30:00 AM, [address] [place] [address], [phone], Progress Notes * PJ StarlaDOB: (74 yo F)Acc No.[id number]:05/25/2024 Progress Note Patient: Roger TYLERqueline Provider: Maria C Agarwal DPM :1950 A ge:74 Y S ex:Female Date:05/25/2024 Address:[address] [place], [place] [address]Jarek [id number] Pcp:Michael Orellana MD Subjective: * Chief Complaints: * * Medical History: Objective: * Vitals: Assessment: Plan: * Treatment: * Images: * The named appointment provid er may or may not be the originator of this progress note, and it is not deemed complete until electronically signed by the appointment provider. Sign off status: Pending * Provider: Maria C Agarwal DPM Date: 0 05/25/2024 Generated for Gian domingo/Jacinda/Joycelyn on: 03/14/2024 09:09 AM EST
--- OUTSIDE RECORDS SUMMARY | 2024-06-22 03:00 | XMS_ITS ---
Author Organization [facility] Address [address] [place] [address] Care Team Providers Care Middle School Resource Teacher Name Role Phone Michael Orellana MD Primary Care Provider Unavaila Jennifer Mejia [phone] Encounters Encounter Location Date Provider Diagnosis [address] [address] 06/22/2024 Jennifer Agarwal Plan Of Treatment Next Appt Details Provider Name:Jennifer A Stefano , 03/05/2025 02:30:00 PM, [address] [place] [address], [phone], Provider Name:Jennifer Amber Stefano , 05/14/2025 08:30:00 AM, [address] [place] [address], [phone], Progress Notes * PJ StarlaDOB: (74 yo F)Acc No.[id number]:06/22/2024 Progress Note Patient: Roger TYLERqueline Provider: Maria C Agarwal DPM :1950 A ge:74 Y S ex:Female Date:06/22/2024 Address:[address] [place], [place] [address]Jarek [id number] Pcp:Michael Orellana MD Subjective: * Chief Complaints: * * Medical History: Objective: * Vitals: Assessment: Plan: * Treatment: * Images: * The named appointment provid er may or may not be the originator of this progress note, and it is not deemed complete until electronically signed by the appointment provider. Sign off status: Pending * Provider: Maria C Agarwal DPM Date: 0 06/22/2024 Generated for Gian domingo/Jacinda/Joycelyn on: 03/14/2024 09:10 AM EST
--- OUTSIDE RECORDS SUMMARY | 2024-08-28 03:15 | XMS_ITS ---
Author Organization [facility] Address [address] [place] [address] Care Team Providers Care Biodiesel Production Technician Name Role Phone Michael Orellana MD Primary Care Provider Unavaila Jennifer Mejia [phone] Encounters Encounter Location Date Provider Diagnosis [address] [address] 08/28/2024 Jennifer Agarwal Plan Of Treatment Next Appt Details Provider Name:Jennifer A Stefano , 03/05/2025 02:30:00 PM, [address] [place] [address], [phone], Provider Name:Jennifer A Stefano , 05/14/2025 08:30:00 AM, [address] [place] [address], [phone], Progress Notes * PJ StarlaDOB: (74 yo F)Acc No.[id number]:08/28/2024 Progress Note Patient: Roger TYLERqueline Provider: Maria C Agarwal DPM :1950 A ge:74 Y S ex:Female Date:08/28/2024 Address:[address] [place], [place] [address]Jarek [id number] Pcp:Michael Orellana MD Subjective: * Chief Complaints: * * Medical History: Objective: * Vitals: Assessment: Plan: * Treatment: * Images: * The named appointment provid er may or may not be the originator of this progress note, and it is not deemed complete until electronically signed by the appointment provider. Sign off status: Pending * Provider: Maria C Agarwal DPM Date: 0 08/28/2024 Generated for Gian domingo/Jacinda/Joycelyn on: 03/14/2024 09:10 AM EST
--- OUTSIDE RECORDS SUMMARY | 2024-10-20 04:00 | XMS_ITS ---
Author Organization [facility] Address [address] [place] [address] Care Team Providers Care Fiberglass Technician Name Role Phone Michael Orellana MD Primary Care Provider Unavaila Jennifer Mejia Unavailable [phone] Dale Encounters Encounter Location Date Provider Diagnosis [address] [address] 10/20/2024 Jennifer Agarwal Plan Of Treatment Next Appt Details Provider Name:Jennifer A Stefano , 03/05/2025 02:30:00 PM, [address] [place] [address], [phone], Provider Name:Jennifer A Stefano , 05/14/2025 08:30:00 AM, [address] [place] [address], [phone], Progress Notes * PJ, StarlaDOB: (74 yo F)Acc No.[id number]:10/20/2024 Progress Note Patient: Brooke TYLERline Provider: Maria C Agarwal DPM :1950 A ge:74 Y S ex:Female Date:10/20/2024 Address:[address] [place], [place] [address]Jarek [phone] Pcp:Michael Orellana MD Subjective: * Chief Complaints: * [address] Dale. * Medical History: Objective: * Vitals: Assessment: Plan: * Treatment: * Images: * The named appointment provid er may or may not be the originator of this progress note, and it is not deemed complete until electronically signed by the appointment provider. Sign off status: Pending * Provider: Maria C Agarwal DPM Date: 0 10/20/2024 Generated for Gian doimngo/Jacinda/Joycelyn on: 03/14/2024 09:09 AM EST
--- OUTSIDE RECORDS SUMMARY | 2024-12-28 03:15 | XMS_ITS ---
Author Organization [facility] Address [address] [place] [phone] Care Team Providers Care Advanced Practice Provider Name Role Phone Michael Orellana MD Primary Care Provider Unavaila Jennifer Mejia Unavailable [phone] REASON FOR VISIT Seen Sooner Encounters Encounter Location Date Provider Diagnosis [address] [address] 12/28/2024 Jennifer Agarwal Plan Of Treatment Next Appt Details Provider Name:Jennifer Clark Stefano , 03/05/2025 02:30:00 PM, [address] [place] [address], [phone], Provider Name:Jennifer A Stefano , 05/14/2025 08:30:00 AM, [address] [place] [address], [phone], Progress Notes * PJ, StarlaDOB: (74 yo F)Acc No.[id number]:12/28/2024 Progress Note Patient: Brooke TYLERline Provider: Maria C Agarwal DPM :1950 A ge:74 Y S ex:Female Date:12/28/2024 Address:[address] [place], [place] [address]Jarek [id number] Pcp:Michael Orellana MD Subjective: * Chief Complaints: * 1 . Seen Sooner. * Medical History: Objective: * Vitals: Assessment: Plan: * Treatment: * Images: * The named appointment provid er may or may not be the originator of this progress note, and it is not deemed complete until electronically signed by the appointment provider. Sign off status: Pending * Provider: Maria C Agarwal DPM Date: 02/28/2024 Generated for Gian domingo/Jacinda/Joycelyn on: 03/14/2024 09:10 AM EST
--- NOTE | ~2025-01-12 | XR_ITS ---
EXAMINATION: XR SACRUM AND COCCYX CLINICAL INFORMATION: PAIN COMPARISON: None available. TECHNIQUE: 3 views FINDINGS: Bowel gas and stool projected over the sacrum and coccyx on the frontal views, limiting evaluation. Mild sclerosis marginating bilateral SI joints suggesting mild arthritis. No visible acute fracture or malalignment. Mild spondylosis in the visualized lower lumbar spine. Mild symphysis pubis degeneration. Bilateral hip joint articulations are maintained. No suspicious bony lesions. No abnormal soft tissue calcification. XR/XR sacrum coccyx min 2V IMPRESSION: No radiographic evidence of acute fracture. Mild bilateral SI joint arthritis. Additional findings as above. Electronically signed by: Arnaldo Sheth MD 01/12/2025 04:16 PM [facility]
--- OUTSIDE RECORDS SUMMARY | 2025-01-12 09:09 | XMS_ITS | Encounter Summary ---
Author Organization [facility] Address [address] [place] [address] Care Team Providers Care Looseleaf Binder Coverer Name Role Phone Unavailable Primary Care Provider Unavailabl e Encounter Details Date Type Department Care Team (Late st Contact Info) Description 07/07/2024 Lab Requisition [facility] - Main Lab [address] [facility] [place] [address] Janice Nieves PA [address] [place], [place] [id number] Urinary tract infection, site not specified Social History Tobacco Use Types Packs/Day Years Used Date Smoking Tobacco: Never Assessed Comments Unknown Sex and Gender Information Value Date Recorded Sex Assigned at Not on file Legal Sex Female 12:01 AM EST Gender Identity Not on file Sexual Orientation Not on file documented as of this encounter Plan of Treatment Not on file documented as of this encounter Procedures Procedure Name Priority Date/Time Associated Diagnosis Comments CULTURE URINE Routine 07/07/2024 12:00 AM EDT Urinary tract infection, site not specified documented in this encounter Results * (ABNORMAL) Culture urine (07/07/2024 12:00 AM EDT) Culture, Urine >100,000 CFU/mL Escherichia coli ESBL(A) MONTEZ 07/13/2024 11:09 AM EDT [facility] ([facility] Comment: THIS ORGANISM IS POSITIVE FOR EXTENDED SPECTRUM BETA-LACTAMASE (ESBL). EXTENDED SPECTRUM BETA-LACTAMASE PRODUCING ORGANISMS DEMONSTRATE DECREASED ACTIVITY WITH PENICILLILNS, CEPHALOSPORINS AND AZTREONAM. Edited result: Previously reported as Escherichia coli on 07/09/2024 at 1012 EDT. Culture, Urine 10,000-49,000 CFU/mL Pseudomonas aeruginosa(A) MONTEZ 07/13/2024 11:09 AM EDT [facility] ([facility] Comment: The organism value for this result has been updated. These results have been appended to the previously preliminary verified report. Urine Urine specimen obtained by clean catch procedure / Unknown 07/07/2024 07/07/2024 6:10 PM EDT Narrative Organism Antibiotic Method Susceptibility Escherichia coli ESBL Amoxicillin/Clavulanate MONTEZ 8 ug/ml: Susceptible Escherichia coli ESBL Ampicillin/Sulbactam MONTEZ 8 ug/ml: Susceptible Escherichia coli ESBL Piperacillin/Tazobactam MONTEZ <=4 ug/ml: Susceptible Escherichia coli ESBL Cefazolin (Urine) MONTEZ >=32 ug/ml: Resistant Escherichia coli ESBL Cefoxitin MONTEZ <=4 ug/ml: Susceptible Escherichia coli ESBL Ceftazidime MONTEZ 8 ug/ml: Intermediate Escherichia coli ESBL Ceftriaxone MONTEZ >=64 ug/ml: Resistant Escherichia coli ESBL Cefepime MONTEZ 16 ug/ml: Resistant Escherichia coli ESBL Meropenem MONTEZ <=0.25 ug/ml: Susceptible Escherichia coli ESBL Amikacin MONTEZ 2 ug/ml: Susceptible Escherichia coli ESBL Gentamicin MONTEZ <=1 ug/ml: Susceptible Escherichia coli ESBL Ciprofloxacin MONTEZ <=0.06 ug/ml: Susceptible Escherichia coli ESBL Levofloxacin MONTEZ <=0.12 ug/ml: Susceptible Escherichia coli ESBL Nitrofurantoin MONTEZ <=16 ug/ml: Susceptible Escherichia coli ESBL Trimethoprim/Sulfa methox azole MONTEZ <=20 ug/ml: Susceptible Pseudomonas aeruginosa Ceftazidime MONTEZ 4 ug/ml: Susceptible Pseudomonas aeruginosa Meropenem MONTEZ <=0.25 ug/ml: Susceptible Pseudomonas aeruginosa Amikacin MONTEZ 4 ug/ml: Susceptible Pseudomonas aeruginosa Ciprofloxacin MONTEZ 0.25 ug/ml: Susceptible Pseudomonas aeruginosa Levofloxacin MONTEZ 1 ug/ml: Susceptible Pseudomonas aeruginosa Cefepime DISK DIFFUSION Susceptible Pseudomonas aeruginosa Piperacillin/Tazobactam DISK DI FFUSION Susceptible us [facility] MICROBIOLOGY - GENERAL ORD ERABLES Final Result [facility] [address] [place] [address], documented in this encounter Visit Diagnoses Diagnosis Urinary tract infection, site not specified documented in this encounter Additional Health Concerns Infection Onset Date Last Indicated Resolved Time ESBL 07/07/2024 07/07/2024 documented as of this encounter
--- OUTSIDE RECORDS SUMMARY | 2025-01-12 09:09 | XMS_ITS | Patient Health Record ---
Author Organization [facility] Address [address] [facility] [place] [address] Care Team Providers Care Hoisting Machine Operator Name Role Phone Michael Orellana MD Primary Care Provider Unavaila ble Black, Jennifer Unavailable [phone] Allergies Allergen (clinical drug ingredient) Drug/Non Drug Allergy documented on EMR Reaction Allergy Type Onset Date Status amoxicillin Amoxicillin rash Drug Allergy Act sera sulfamethoxazole / trimethoprim Bactrim Unknown Drug Allergy Active Biaxin rash Drug Allergy Active erythromycin Erythromycin rash Drug Allergy A ctive Adhesive Unknown Allergy Active nitrofurantoin Nitrofurantoin nodules on lungs, issues with breathing Drug Allergy Active Penicillin rash Drug Allergy Active Substance with sulfonamide structure and antibacterial mechanism of action (substance) Sulfa Antibiotics Unknown Drug Allergy Active Results Component Value Reference Range Notes HEMOGLOBIN A1C (GLYCOHEMOGLO BIN) Reviewed date:04/19/2024 08:34:52 AM Interpretation: Performing Lab: Notes/Report: HEMOGLOBIN A1C % (HH) 6.0 HEMOGLOBIN A1C (GLYCOHEMOGLO BIN) Reviewed date:10/26/2024 01:54:47 PM Interpretation: Performing Lab: Notes/Report: HEMOGLOBIN A1C % (HH) 6.1 Reason For Referral No Information Medications Medication SIG (Take, Route, Frequency, Duration) Notes Start Date End Date Status Losartan Potassium-HCTZ 50-12.5 MG 1 tablet Orally Once a day Active Triamterene-HCTZ 37.5-25 MG 1 tablet in the morning Orally Once a day Not-Taking Metoprolol Tartrate 75 MG 1 tablet Orally Twice a day 50 and 25 Active Isosorbide Mononitrate ER 30 MG 1 tablet Orally Once a day Not-Taking dilTIAZem HCl Active amLODIPine Besylate 5 MG 1 tablet Orally Once a day Not-Taking Vitamin D Active Triamterene Not-Taki ng Night Splint AFO - L1930 as directed 05/28/2016 Not-Taking Magnesium 200mg once a day Active LamISIL 250 MG 1 tablet Orally Once a day for 7 days then stop for 3 weeks then repeat cycle for 12 months; Duration: 360 days finished 07/201710/05/2016 Not-Taking Baby Aspirin Active Ciclopirox Olamine 0.77% external Apply to effected areas twice a day; Duration: 30 days 11/14/2014 Not-Taking Extra Depth Orthopedic Shoes (1 Pair) with Customized Heat Molded Multidensity Innersoles (3 Pair) as directed Dx: NIDDM/Polyneuropat hy (E11.42), Hammertoe Foot Deformity (M20.41,M20.42), Preulcerative Skin Lesion(s) (L85.1 01/13/2024 Active Myrbetriq 25 MG as directed Orally Not-Taking Nitrofurantoin Not-T aking Gabapentin Not-Takin g Hydrocortisone 1 % 1 application to affected area Externally Twice a day to affected areas on feet; Duration: 30 days Not-Taking zzzCompression Stockings 20-30mm Hg . . .; Duration: . Not-Takin g metFORMIN HCl 500 MG 1 tablet with a meal Orally Once a day; Duration: 30 day(s) Not-Taking Clopidogrel Bisulfate 75 MG Orally Not-Taking Atorvastatin Calcium 80 MG 1 tablet Orally Once a day Not-Taking Solifenacin Succinate 5 MG 1 tablet Orally Once a day; Duration: 30 day(s) Not-Taking Aspirin Adult Low Strength 81 MG 1 tablet Orally Once a day Not-Taking hydroCHLOROthiazide 25 MG 1 tablet in the morning Orally Once a day Active oxyBUTYnin Not-Takin g Doxycycline Hyclate 100 MG 1 tablet Orally Once a day; Duration: 10 day(s) 03/07/2020 Not-Taking Estradiol 0.1 MG/GM as directed Vaginal Active Cipro 500 MG 1 tablet Orally every 12 hrs; Duration: 10 day(s) 01/24/2018 Not-Taking Rosuvastatin Calcium Active Immunizations Vaccine Route Administration Date Status Comme nts Influenza Unknown 11/09/2016 Administered Influenza Unknown 11/03/2019 Administered Influenza Unknown 11/24/2021 Administered Influenza Unknown 11/23/2022 Administered Influenza Unknown 10/24/2023 Administered Pneumococcal Unknown 11/24/2016 Administered COVID-19 Pfizer BioNTech Vaccine Unknown 01/21/2021 Administered #1 04/17/20 #2 05/08/20 Social History Tobacco Use: Social History Observation [...] ast year? No Points 0 Interpretation Negative Problems Problem Type SNOMED Code ICD Code Onset Dates Problem Status W/U Status Risk Notes Problem Polyneuropathy due to type 2 diabetes mellitus (322977234) Type 2 diabetes mellitus with diabetic polyneuropathy (E11.42) Active confirmed Vital Signs Blood pressure diastolic 70 mm Hg 10/26/2024 Height 5ft 6in in 10/26/2024 Blood pressure systolic 116 mm Hg 10/26/2024 Weight 178 lbs 10/26/2024 BMI 28.73 kg/m2 10/26/2024 Procedures Procedure Date Ordered Date Performed Result Body Sit e 08770-ETMWYRK NAIL, 6 OR MORE 01/13/2024 N/A 70955-HNKX SKIN LESIONS, 2 TO 4 01/13/2024 N/A 83755-VPDKWJJ NAIL, 6 OR MORE 04/19/2024 N/A 00920-Ontrvtda Plate 04/19/2024 N/A 67640-ZROL SKIN LESIONS, 2 TO 4 04/19/2024 N/A 84238-YDJLWYE NAIL, 6 OR MORE 08/17/2024 N/A 84093-SQKC SKIN LESIONS, 2 TO 4 08/17/2024 N/A 86566-ZTEYOAN NAIL, 6 OR MORE 10/26/2024 N/A 82070-QLKJ SKIN LESIONS, 2 TO 4 10/26/2024 N/A Encounters Encounter Location Date Provider Diagnosis [facility] [place] [address] [place] [address] 01/13/2024 Jennifer Black Neuritis M79.2 ; Oth er hammer toe(s) (acquired), right foot M20.41 ; Hallux valgus (acquired), right foot M20.11 ; Tinea unguium B35.1 ; Pain in right foot M79.671 ; Pain in right ankle and joints of right foot M25.571 ; Type 2 diabetes mellitus with diabetic polyneuropathy E11.42 and Other hammer toe(s) (acquired), left foot M20.[facility] [address] 04/19/2024 Jennifer Agarwal Hallux valgus (acqui red), right foot M20.11 ; Type 2 diabetes mellitus with diabetic polyneuropathy E11.42 ; Tinea unguium B35.1 ; Pain in right foot M79.671 ; Pain in right ankle and joints of right foot M25.571 and Ingrown nail L60.[address] [address] 08/17/2024 Jennifer Agarwal Type 2 diabetes niurka itus with diabetic polyneuropathy E11.42 ; Other hammer toe(s) (acquired), left foot M20.42 ; Tinea unguium B35.1 ; Pain in right foot M79.671 ; Pain in right ankle and joints of right foot M25.571 ; Pain in left toe(s) M79.675 ; Arthritis of joint of lesser toe, left M19.072 and Subluxation of metatarsophalangeal joint of toe, initial encounter S93.149A [address] [address] 10/26/2024 Jennifer Agarwal Type 2 diabetes niurka itus with diabetic polyneuropathy E11.42 and Tinea unguium B35.[address] [address] 03/06/2024 Jennifer Agarwal [address] [address] 05/11/2024 Jennifer Agarwal Assessments Encounter Date Diagnosis (ICD Code) Assessment Notes Treatment Notes Treatment Clinical Notes Section Notes 01/13/2024 Other hammer toe(s) (acquired), right foot (ICD-10 - M20.41) Patient Educated with: DIABETIC FOOT CARE INSTRUCTIONS. pdf (DIABETIC FOOT CARE INSTRUCTIONS. pdf) 01/13/2024 Neuritis (ICD-10 - M79.2) 04/19/2024 Type 2 diabetes mellitus with diabetic polyneuropathy (ICD-10 - E11.42) 04/19/2024 Hallux valgus (acquired), right foot (ICD-10 - M20.11) 08/17/2024 Type 2 diabetes mellitus with diabetic polyneuropathy (ICD-10 - E11.42) 08/17/2024 Other hammer toe(s) (acquired), left foot (ICD-10 - M20.42) 10/26/2024 Type 2 diabetes mellitus with diabetic polyneuropathy (ICD-10 - E11.42) 10/26/2024 Tinea unguium (ICD-1 0 - B35.1) 08/17/2024 Tinea unguium (ICD-1 0 - B35.1) 01/13/2024 Hallux valgus (acquired), right foot (ICD-10 - M20.11) 04/19/2024 Tinea unguium (ICD-1 0 - B35.1) 01/13/2024 Tinea unguium (ICD-1 0 - B35.1) 04/19/2024 Pain in right foot (ICD-10 - M79.671) 08/17/2024 Pain in right foot (ICD-10 - M79.671) 04/19/2024 Pain in right ankle and joints of right foot (ICD-10 - M25.571) 08/17/2024 Pain in right ankle and joints of right foot (ICD-10 - M25.571) 01/13/2024 Pain in right foot (ICD-10 - M79.671) 01/13/2024 Pain in right ankle and joints of right foot (ICD-10 - M25.571) 08/17/2024 Pain in left toe(s) (ICD-10 - M79.675) 04/19/2024 Ingrown nail (ICD-10 - L60.0) 01/13/2024 Type 2 diabetes mellitus with diabetic polyneuropathy (ICD-10 - E11.42) 08/17/2024 Arthritis of joint o f lesser toe, left (ICD-10 - M19.072) 01/13/2024 Other hammer toe(s) (acquired), left foot (ICD-10 - M20.42) 08/17/2024 Subluxation of metatarsophalangeal joint of toe, initial encounter (ICD-10 - S93.149A) 04/19/2024 Other Plan Of Treatment Pending Test Test Name Order Date *Liver Function Test (LFT) 09/17/2016 35944-XHMREQR NAIL, 6 OR MORE 09/17/2016 07941-ZZSMUPK NAIL, 6 OR MORE 05/27/2017 65507-YEBIOXB NAIL, 6 OR MORE 08/30/2017 65946-WGJAXSU NAIL, 6 OR MORE 11/24/2017 42309-UFPWEPP NAIL, 6 OR MORE 02/24/2018 55191-WCMIYDF NAIL, 6 OR MORE 05/02/2018 80656-EIERQLI NAIL, 6 OR MORE 07/14/2018 32246-CVLMGGE NAIL, 6 OR MORE 10/03/2018 37657-QACWSCW NAIL, 6 OR MORE 12/12/2018 31769-OXQXCQH NAIL, 6 OR MORE 04/17/2019 19934-PFIXQHB NAIL, 6 OR MORE 07/24/2019 59545-PPKUORQ NAIL, 6 OR MORE 09/25/2019 78145-SFNZFTE NAIL, 6 OR MORE 12/07/2019 84683-LEZSRRE NAIL, 6 OR MORE 06/18/2016 70860-ACQANWQ NAIL, 6 OR MORE 02/26/2020 27962-OKCKGAA NAIL, 6 OR MORE 07/17/2020 60997-WBUQRAU NAIL, 6 OR MORE 09/23/2020 12960-AROBYEB NAIL, 6 OR MORE 12/30/2020 57313-WEEFBQZ NAIL, 6 OR MORE 04/21/2021 17395-TWLEMAY NAIL, 6 OR MORE 05/06/2020 09088-JYBSVZE NAIL, 6 OR MORE 07/14/2021 00768-SKVNWRG NAIL, 6 OR MORE 12/22/2021 39727-NEZKBGU NAIL, 6 OR MORE 03/26/2022 01310-CCEDFNU NAIL, 6 OR MORE 06/15/2022 27594-ORWECZG NAIL, 6 OR MORE 08/17/2022 06644-YLRULMT NAIL, 6 OR MORE 10/19/2022 34924-MUPYVWX NAIL, 6 OR MORE 12/21/2022 42926-VCFHLQU NAIL, 6 OR MORE 02/25/2023 06225-WLPPPYI NAIL, 6 OR MORE 05/03/2023 75765-JSZNNII NAIL, 6 OR MORE 07/08/2023 24032-JZUZTRA NAIL, 6 OR MORE 09/09/2023 40256-QPNWCTD NAIL, 6 OR MORE 10/13/2021 76209-PHGDDZC NAIL, 6 OR MORE 11/11/2023 10509-QFLFHUC NAIL, 6 OR MORE 01/13/2024 32718-EUSLPCL NAIL, 6 OR MORE 04/19/2024 64411-QRFQALJ NAIL, 6 OR MORE 08/17/2024 44401-DBKGWML NAIL, 6 OR MORE 10/26/2024 51086-Ddcgrqzi Plate 04/19/2024 13722-Nzmwddwt Plate 10/19/2022 91192-Ekcxxvcp Plate 07/17/2020 99312-Kkwkblyc Plate 07/14/2021 95361-Bxcsmayy Plate 02/26/2020 87770-Evboyyli Plate 11/14/2014 08382-Dqhgswdf Plate 05/28/2016 98306-WQL 01/24/2018 78383- Debride <25 sq cm 06/18/2016 53692- Debride <25 sq cm 12/05/2014 62506- Debride <25 sq cm 03/14/2020 39391- Debride <25 sq cm 02/24/2018 38180- Debride <25 sq cm 11/02/2022 04942- Debride <25 sq cm 10/30/2021 34893-QSDEVJX SKIN/TISSUE 02/07/2018 03887 I&D ABSCESS- SIMPLE,SINGLE 022 41022-HRLC SKIN LESIONS, 2 TO 4 01/13/20 24 50952-WNHC SKIN LESIONS, 2 TO 4 11/11/19 24 70347-SHCE SKIN LESIONS, 2 TO 4 08/18/19 25 54672-HXQK SKIN LESIONS, 2 TO 4 04/19/19 25 26648-DCHE SKIN LESIONS, 2 TO 4 10/27/19 25 Next Appt Details Provider Name:Jennifer Agarwal , 03/05/2025 02:30:00 PM, [address] [place], [address], Provider Name:Jennifer Aagrwal , 05/14/2025 08:30:00 AM, [address] [place], [address], Insurance Providers Payer Name Payer Address Payer Phone Subscriber Number Group Number Insured Name Patient Relationship to Insured Coverage Start Date Coverage End Date Medicare [facility] [employer] [address] [place] [phone] [id number] Starla Oliva Self - patient is the insured [employer] [address] [place] [address] [phone] [id number] Starla Oliva Self - patient is the insured Medical (General) History Medical History History ICD Code Angina Hyperlipidemia Diverticulosis Heart disease Hypertension Pre-iabetic Cancer Concussion Diverticulitis Pronation deformity of left foot M21.6X2 Pronation deformity of right foot M21.6X 1 Other hammer toe(s) (acquired), right fo ot M20.41 Hallux valgus (acquired), left foot M20. 12 Hallux valgus (acquired), right foot M20 .11 Arthritis of joint of lesser toe, left M 19.072 bladder issues Surgical History Surgery Date(Month/Year) heart surgery unspecified 04/2013 stent insertion 04/2010 ablation 04/2013 Lupereapeater Placement - Cardiac proced ure 2017 Uterus Bx 04/2018 right artery stent 01/31/2019 hysterectomy- Cancer cells 04/11/21 D and C 03/15 Hospitalization History Reason Date(Month/Year) cat scans pulminary function test elevat ed liver number 2023 Gissel Arellano- Diverticulosis [facility]- concussion Gissel Arellano- MRI 04/2020 Visit to retirement consultant for yael lalnos t - measure heart beats 06/2017
--- OUTSIDE RECORDS SUMMARY | 2025-01-12 09:10 | XMS_ITS | Patient Health Record ---
Author Organization [facility] Address [address] [place] [address] Care Team Providers Care Clinical Nursing Coordinator Name Role Phone Michael Orellana MD Primary Care Provider Carroll Salazar Jr Unavailable Allergies Allergen (clinical drug ingredient) Drug/Non Drug Allergy documented on EMR Reaction Allergy Type Onset Date Status most antibiotics (uncoded) Unknown Allergy Active sulfamethoxazole / trimethoprim Bactrim Unknown Drug Allergy Active erythromycin Erythromycin Unknown Drug Allergy A ctive penicillin G Penicillin G Sodium Unknown Drug Allergy Active tetracycline Tetracycline HCl Unknown Drug Allergy Active Adhesive Unknown Allergy Active Results Component Value Reference Range Notes Pathology Reviewed date:04/13/2024 09:01:01 AM Interpretation: Performing Lab:[facility], [address] [place] [id number] Notes/Report: Reason For Referral No Information Medications Medication SIG (Take, Route, Frequency, Duration) Notes Start Date End Date Status Metoprolol Succinate 50 MG Tablet Extended Release as directed Orally 50 mg with 25 mg twice a day Active Atorvastatin Calcium 80 MG Tablet 1 tablet Orally Once a day Active Valsartan-hydroCHLOROthia zide 320-12.5 MG Tablet 1 tablet Orally Once a day; Duration: 30 day(s) Active Magnesium 200 MG Tablet 2 tablets with a meal Orally Once a day; Duration: 30 day(s) Active hydroCHLOROthiazide 12.5 MG Tablet Oral; Duration: 90 Active Gabapentin 100 MG Capsule Oral; Duration : 30 Active Myrbetriq 50 MG Tablet Extended Release 24 Hour TAKE 1 TABLET ONCE DAILY ATTHE SAME TIME DAILY Oral; Duration: 90 N3946,MIXED INCONTINENCE Active Nitrofurantoin Macrocrystal 100 MG Capsule TAKE ONE CAPSULE BY MOUTH EVERY DAY Oral; Duration: 85 Active Vitamin D 2000 UNIT Tablet 1 tablet Orally Once a day; Duration: 30 day(s) Active Aspirin 81 81 MG Tablet Chewable 1 tablet Orally Once a day; Duration: 30 day(s) Active Diltiazem CD 120 MG Capsule Extended Release 24 Hour 1 capsule Orally Once a day; Duration: 30 day(s) Active Immunizations Vaccine Route Administration Date Status Comme nts Influenza Unknown 12/01/2017 Administered Influenza Unknown 01/22/2022 Administered Social History Tobacco Use: Social History Observation Description Date Details (start date - stop date) Never Smoker NA - NA Social History Drugs/Alcohol: Social Info Question Answer Notes Alcohol Screen Did you have a drink containing alcohol in the past year? No Points 0 Interpretation Negative Tobacco Use: Social Info Question Answer Notes Tobacco Use/Smoking Patient is a nonsmoker Additional Details Category Social Info Options Details Miscellaneous: Marital status: Occupation: retired Problems Problem Type SNOMED Code ICD Code Onset Dates Problem Status W/U Status Risk Notes Problem Colon cancer screening (465165209) Colon cancer screening (Z12.11) Active confirmed Problem Rectal bleeding (15033248) Rectal bleeding (K62.5) Active confirmed Problem Long-term current use of antiplatelet drug (401178627479143 ) FPC (current) use of aspirin (Z79.82) Active confirmed Problem Fatty liver (252448963) Fatty liver (K76.0) Active confirmed Problem Constipation (02575466) Constipation, unspecified constipation type (K59.00) Active confirmed Problem Computed tomography of abdomen abnormal (986956049909589 07) Abnormal CT scan, stomach (R93.3) Active confirmed Vital Signs Blood pressure diastolic 00 mm Hg 02/10/2024 Height 66 in 02/10/2024 Blood pressure systolic 00 mm Hg 02/10/2024 Weight 182 lbs 02/10/2024 BMI 29.37 kg/m2 02/10/2024 Encounters Encounter Location Date Provider Diagnosis [facility] [address] [place] [phone] 04/04/2024 Carroll Aquino Jr Abnormal UGI series R93.3 [facility] [address] [place] [address] 02/10/2024 Carroll Aquino Jr Abnormal CT scan, stomach R93.3 and Fatty liver K76.0 [facility] [address] [place] [address] 02/10/2024 Carroll Aquino [facility] [address] [place] [address] 03/15/2024 Carroll Aquino [facility] [address] [place] [address] 04/12/2024 Carroll Millermaximino Martinez Assessments Encounter Date Diagnosis (ICD Code) Assessment Notes Treatment Notes Treatment Clinical Notes Section Notes 04/04/2024 Abnormal UGI series (ICD-10 - R93.3) 02/10/2024 Fatty liver (ICD-10 - K76.0) We discussed fatty liver today. We discussed treatment of underlying comorbidities including weight management, diabetes, blood pressure, and cholesterol. We recommended she follow a low-fat diet. We discussed gastric wall thickening. We have recommended further evaluation with endoscopy because of the abnormal CT scan findings in her history of upper abdominal discomfort. She understands risks and benefits and agrees to proceed. Followup liver function testing will be obtained pending the results of her endoscopy. She is advised to stop aspirin one week before the procedure. Today's visit was 30 minutes. 02/10/[address] scan, stomach (ICD-10 - R93.3) Endoscopy material was printed We discussed fatty liver today. We discussed treatment of underlying comorbidities including weight management, diabetes, blood pressure, and cholesterol. We recommended she follow a low-fat diet. We discussed gastric wall thickening. We have recommended further evaluation with endoscopy because of the abnormal CT scan findings in her history of upper abdominal discomfort. She understands risks and benefits and agrees to proceed. Followup liver function testing will be obtained pending the results of her endoscopy. She is advised to stop aspirin one week before the procedure. Today's visit was 30 minutes. Plan Of Treatment Future Test Test Name Order Date COLONOSCOPY 07/06/2018 COLONOSCOPY 02/02/2022 UPPER GI ENDOSCOPY 02/10/2024 Insurance Providers Payer Name Payer Address Payer Phone Subscriber Number Group Number Insured Name Patient Relationship to Insured Coverage Start Date Coverage End Date MEDICARE OF [place] [address] [place] [address] [id number] NIR[place] BLACK Self - patient is the insured [employer] CLAIM[employer] [address] [place] [address] [phone] [id number] SOFIA [place] Self - patient is the insured Medical (General) History Medical History History ICD Code obstructive sleep apnea/CPAP Atrial fibrillation Coronary artery disease with history of KS 05/02, stent placement x2 diverticulitis, colonoscopy 05/14, normal, ten-year followup optional based on age Uterine cancer Diabetes mellitus type 2 Hypertension Surgical History Surgery Date(Month/Year) stent placement x2 cardiac ablation Loop recorder implantation Bilateral cataract repair dilatation and curettage hysterectomy due to uterine cancer 04/15
--- OUTSIDE RECORDS SUMMARY | 2025-01-12 09:10 | XMS_ITS | Clinical Summary ---
Author Organization [address] Address [address] [place] [address] Phone Care Team Providers Care Ecosystem Ecology Professor Name Role Phone Unavailable Primary Care Provider Unavailabl e Social History Tobacco Use Types Packs/Day Years Used Date Smoking Tobacco: Never Assessed Comments Unknown Sex and Gender Information Value Date Recorded Sex Assigned at Not on file Legal Sex Female 12:01 AM EST Gender Identity Not on file Sexual Orientation Not on file Plan of Treatment Health Maintenance Due Date Last Done Comments Breast Cancer Screening 1950 Colorectal Cancer Screening: Colonoscopy 1950 Diabetes: Annual Foot Exam 1961 Diabetes: Annual Retina Eye Exam 1961 Depression Screening 02/23/2024 Falls Risk Assessment 07/08/2024 Medicare Annual Wellness Visit 07/08/2024 Osteoporosis Screening (Bone Density Screening) 07/08/2024 Social Influencers of Health Screening 07/08/2024 Diabetes: Blood Sugar Control Test (HGBA1C) 07/10/2024 Diabetes: Annual Urine Albumin-Creatinine Ratio (uACR) 08/05/2024 08/06/2023, 10/30/2021 COVID-19 Vaccine ( season) 2024 06/29/2022, 01/13/2022, 01/21/2021, Additional history exists Influenza Vaccine (#1) 2024 , 11/20/2022, 01/13/2022, Additional history exists Diabetes: Annual GFR (Glomerular Filtration Rate) 06/26/2025 06/26/2024, 05/26/2024, 03/22/2024, Additional history exists Hypertension/CHF/CAD Annual BMP Blood Test 06/26/2025 06/26/2024, 05/26/2024, 03/22/2024, Additional history exists Cholesterol Screening (Lipid Panel) 01/09/2029 01/10/2024 DTaP,Tdap,and Td Vaccines (3 - Td or Tdap) 07/06/2032 07/06/2022, 04/28/2011 Pneumococcal Vaccine: 50+ Years Completed 01/22/2020, 11/24/2016, 10/02/2014 Zoster Vaccines Completed 05/14/2021, 10/23, 09/04/2013 RSV Immunization Adult Patients Completed 01/18/2023 Hepatitis C Screening Completed 01/25/2024 HIB Vaccines Aged Out No longer eligi ble based on patient's age to complete this topic HPV Vaccines Aged Out No longer eligi ble based on patient's age to complete this topic Hepatitis A Vaccines Aged Out No long er eligible based on patient's age to complete this topic Hepatitis B Vaccines Aged Out No long er eligible based on patient's age to complete this topic IPV Vaccines Aged Out No longer eligi ble based on patient's age to complete this topic MMR Vaccines Aged Out No longer eligi ble based on patient's age to complete this topic Meningococcal ACWY Vaccine Aged Out N o longer eligible based on patient's age to complete this topic Meningococcal B Vaccine Aged Out No l onger eligible based on patient's age to complete this topic RSV Immunization Patients Under 20 months Aged Out No longer eligible based on patient's age to complete this topic Varicella Vaccines Aged Out No longer eligible based on patient's age to complete this topic Additional Health Concerns Infection Onset Date Last Indicated ESBL 07/07/2024 07/07/2024 Insurance MEDICARE
== END 2025-01-12 08:57 | disposition home or self-care (01) ==
LOC: HO.XRAY 08:56
PROVIDERS: PCP Internal Medicine
DX: M53.3 Sacrococcygeal disorders, not elsewhere classified (principal)
CPT/HCPCS: 72220

== ENCOUNTER → 2025-01-12 09:17 | Outpatient (BNV) | payer MEDICARE, SELFPAY | PROVIDERS: PCP Internal Medicine; Visit Provider Radiology Diagnostic Ultrasound | DX: M46.1 Sacroiliitis, not elsewhere classified (principal) | CPT/HCPCS: 72220 ==